=== PATIENT | female | born 1950 | race Hispanic/Latino ===

== ENCOUNTER 2017-03-29 15:38 | Emergency (ER) | payer MEDICARE, OTHER ==
[~2017-03-29] VITALS: Ht 157.5 cm; Wt 93.9 kg
[2017-03-29] MEDS ORDERED: BACITRACIN ZINC 0.9GM TP ONE (16:00)
== END 2017-03-29 16:15 | disposition home or self-care (01) ==
LOC: ER 15:38
DX: S61.217A Laceration without foreign body of left little finger without damage to nail, initial encounter (principal); W26.0XXA Contact with knife, initial encounter; Y93.G3 Activity, cooking and baking; Y92.000 Kitchen of unspecified non-institutional (private) residence as the place of occurrence of the external cause
CPT/HCPCS: 99282

== ENCOUNTER 2018-09-09 20:03 | Emergency (ER) | payer MEDICARE ==
[~2018-09-09] VITALS: Ht 157.5 cm; Wt 95.7 kg
[~2018-09-09 20:03] MED LIST: FEXOFENADINE H180 MG PO; LOSARTAN-HCTZ1 EAC2 PO
--- OUTSIDE RECORDS SUMMARY | 2018-09-09 20:05 | XMS REPORT | Clinical Summary ---
Author Author Joshua [facility] Organization [facility] Address Unknown Phone Unavailable Care Team Providers Care Thermostat Mechanic Name Role Phone Michael Woodard MD PCP Allergies No Known Allergies Medications Not on file Active Problems Not on file Social History Date Tobacco Use Types Packs/Day Years Used Quit: 03/04/1980 Former Smoker 15 Smokeless Tobacco: Never Used Alcohol Use Drinks/Week oz/Week Comments No Sex Assigned at Date Recorded Not on file Industry Job Start Date Occupation Not on file Not on file Not on file Travel End Travel History Travel Start No recent travel history available. Last Filed Vital Signs Not on file Plan of Treatment Health Maintenance Due Date Last Done Comments BREAST CANCER SCREENING 1999 COLONOSCOPY SCREENING 1999 SHINGLES VACCINES (#1) 1999 65+ PNEUMOCOCCAL VACCINE 2014 (1 of 2 - PCV13) INFLUENZA VACCINE 10/27/2018 Results Not on fileafter 09/08/2017 Insurance Type Payer Benefit Subscriber ID Effective Phone Address Plan / Dates Group HMO U[employer] MEDICARE [employer] xxxxxxxxx 2017- MEDICARE Present DIRECT MCR Advance Directives Patient has advance care planning documents on file. For more information, michael medina contact: Joshua Cole [id number] [place] [address]
[2018-09-09 20:45] LABS: BASOPHILS # (AUTO) 0.1 (0.0-0.1); BASOPHILS % 0.6 % (0.0-1.0); EOSINOPHILS # (AUTO) 0.3 (0.0-0.4); HEMATOCRIT 39.2 % (34.2-44.1); HEMOGLOBIN 12.6 g/dL (12.0-16.0); LYMPHOCYTES # (AUTO) 3.2 (1.0-3.2); LYMPHOCYTES % 38.7 % (18.0-39.1); MEAN CORPUSCULAR HEMOGLOBIN 29.2 pg (28-32); MEAN CORPUSCULAR HGB CONC 32.1 g/dL (31-35); MONOCYTES # (AUTO) 0.8 (0.2-0.8); MONOCYTES % 9.9 % (4.4-11.3); NEUTROPHILS # (AUTO) 3.8 (2.1-6.9); NEUTROPHILS % 46.4 % (38.7-80.0); PLATELET COUNT 165 x10e3/uL (140-360); RED BLOOD COUNT 4.31 x10e6/uL (3.6-5.1); RED CELL DISTRIBUTION WIDTH 14.1 % (11.7-14.4)
[2018-09-09 20:46] LABS: BILIRUBIN,URINE NEGATIVE (NEGATIVE); COLOR,URINE YELLOW (YELLOW); KETONES,URINE NEGATIVE (NEGATIVE); LEUKOCYTE ESTERASE ,URINE NEGATIVE (NEGATIVE); NITRITE,URINE NEGATIVE (NEGATIVE); PROTEIN,URINE DIPSTICK NEGATIVE (NEGATIVE); URINE UROBILINOGEN 0.2 mg/dL (0.2 - 1)
[2018-09-09 20:47] LABS: CLARITY,URINE SL CLOUDY (CLEAR)
[2018-09-09 20:53] LABS: INR 0.86; PROTHROMBIN TIME 12.2 seconds (11.9-14.5)
[2018-09-09 20:54] LABS: PARTIAL THROMBOPLASTIN TIME 34.5 seconds (23.8-35.5)
[2018-09-09 20:57] LABS: BACTERIA,URINE MODERATE /HPF; EPITHELIAL CELLS,URINE MODERATE /LPF; TRANSITIONAL EPI CELLS,URINE FEW
[2018-09-09 21:03] LABS: ALANINE AMINOTRANSFERASE 19 IU/L (0-55); ALBUMIN 3.5 g/dL (3.5-5.0); ALBUMIN/GLOBULIN RATIO 0.7 (0.8-2.0); ALKALINE PHOSPHATASE 211 IU/L (40-150); BLOOD UREA NITROGEN 25 mg/dL (7-26); BUN/CREATININE RATIO 34 (6-25); CARBON DIOXIDE 24 mmol/L (22-29); CHLORIDE 104 mmol/L (98-107); CREATINE KINASE 48 IU/L (29-168); CREATININE, SERUM 0.74 mg/dL (0.57-1.11); EST GLOMERULAR FILTRATION RATE > 60 ML/MIN (60-); GLUCOSE 93 mg/dL (74-118); SODIUM 136 mmol/L (136-145)
--- NOTE | 2018-09-09 22:34 | Diagnostic Imaging Report ---
EXAMINATION: CHEST SINGLE (PORTABLE) INDICATION: Shortness of breath. COMPARISON: 12/01/2017 FINDINGS: TUBES and LINES: None. LUNGS: Lungs are well inflated. Lungs are clear. There is mild prominence of the central pulmonary vasculature, consistent with pulmonary venous congestion. PLEURA: No pleural effusion or pneumothorax. HEART AND MEDIASTINUM: Cardiac size is mildly enlarged. BONES AND SOFT TISSUES: No acute osseous lesion. Spondylosis of the thoracic spine. UPPER ABDOMEN: No free air under the diaphragm. IMPRESSION: Mild pulmonary venous congestion. Signed by: Dr. Chantal Garces M.D. on 09/09/2018 10:31 PM
== END 2018-09-09 22:52 | disposition home or self-care (01) ==
LOC: ER 20:03
DX: R06.09 Other forms of dyspnea (principal)
CPT/HCPCS: 36415; 71045; 80053; 81001; 82550; 82553; 83880; 84484; 85025; 85610; 85730; 93005; 99283

== ENCOUNTER 2019-07-04 17:41 | Inpatient (IN) | payer MEDICARE ==
[~2019-07-04] VITALS: Ht 157.5 cm; Wt 95.7 kg
[2019-07-04] MEDS ORDERED: ASPIRIN 81 MG CHEW TAB PO ONE ×2 (18:00→20:45)
[2019-07-04 18:11] LABS: BASOPHILS % 0.4 % (0.0-1.0); EOSINOPHILS # (AUTO) 0.2 (0.0-0.4); EOSINOPHILS % 2.4 % (0.0-6.0); HEMATOCRIT 39.3 % (34.2-44.1); HEMOGLOBIN 12.4 g/dL (12.0-16.0); LYMPHOCYTES # (AUTO) 3.3 (1.0-3.2); LYMPHOCYTES % 34.6 % (18.0-39.1); MEAN CORPUSCULAR HEMOGLOBIN 29.1 pg (28-32); MEAN CORPUSCULAR HGB CONC 31.6 g/dL (31-35); MEAN CORPUSCULAR VOLUME 92.3 fL (81-99); MONOCYTES # (AUTO) 0.9 (0.2-0.8); MONOCYTES % 8.9 % (4.4-11.3); NEUTROPHILS # (AUTO) 5.1 (2.1-6.9); NEUTROPHILS % 53.5 % (38.7-80.0); PLATELET COUNT 162 x10e3/uL (140-360); RED BLOOD COUNT 4.26 x10e6/uL (3.6-5.1); RED CELL DISTRIBUTION WIDTH 14.5 % (11.7-14.4)
[2019-07-04] MEDS ORDERED: MORPHINE SULFATE 2 MG/ML SYR 1ML IV STA (18:14)
[2019-07-04] MEDS ORDERED: PANTOPRAZOLE 40 MG 10ML VIAL IV STA (18:14)
[2019-07-04] MEDS ORDERED: ONDANSETRON HCL INJ 2MG/ML 2ML 2 MG/ML VIAL IV STA (18:14)
--- NOTE | 2019-07-04 18:19 | NUR ---
URINE SAMPLE NEEDED FROM PATIENT. PATIENT STATES SHE CANNOT GO RIGHT NOW. PT STATES SHE WOULD LIKE TO HAVE SOME TIME, PATIENT DOES NOT WANT TO BE CATHETERIZED AT THIS TIME. PROVIDER AWARE. WILL ATTEMPT TO TAKE PATIENT TO RESTROOM AGAIN.
[2019-07-04 18:21] LABS: INR 0.96; PROTHROMBIN TIME 13.4 seconds (11.9-14.5)
[2019-07-04 18:22] LABS: PARTIAL THROMBOPLASTIN TIME 32.2 seconds (23.8-35.5)
[2019-07-04 18:31] LABS: ALANINE AMINOTRANSFERASE 21 IU/L (0-55); ALBUMIN 3.5 g/dL (3.5-5.0); ALBUMIN/GLOBULIN RATIO 0.8 (0.8-2.0); ALKALINE PHOSPHATASE 267 IU/L (40-150); ANION GAP 13.7 mmol/L (8-16); BLOOD UREA NITROGEN 15 mg/dL (7-26); BUN/CREATININE RATIO 22 (6-25); CALCIUM 9.6 mg/dL (8.4-10.2); CARBON DIOXIDE 23 mmol/L (22-29); CHLORIDE 107 mmol/L (98-107); CREATINE KINASE 47 IU/L (29-168); CREATININE, SERUM 0.67 mg/dL (0.57-1.11); EST GLOMERULAR FILTRATION RATE > 60 ML/MIN (60-); GLUCOSE 114 mg/dL (74-118); LIPASE 26 U/L (8-78); POTASSIUM 3.7 mmol/L (3.5-5.1); SODIUM 140 mmol/L (136-145)
--- NOTE | 2019-07-04 18:47 | Diagnostic Imaging Report ---
EXAMINATION: CHEST SINGLE (PORTABLE) INDICATION: ^ERMD ORDER ^[id number] ^[id number] ^Y COMPARISON: Chest radiograph 09/09/2018 FINDINGS: AP view TUBES and LINES: None. LUNGS: Lungs are well inflated. Mild bilateral interstitial edema. No lobar consolidations. PLEURA: No pleural effusion or pneumothorax. HEART AND MEDIASTINUM: Stable mild enlargement of the cardiac silhouette. BONES AND SOFT TISSUES: No acute osseous lesion. Soft tissues are unremarkable. UPPER ABDOMEN: No free air under the diaphragm. IMPRESSION: Bilateral interstitial edema, similar in appearance when compared to 09/09/2018. Signed by: Dr. Diane Palm M.D. on 07/04/2019 6:43 PM
[2019-07-04] MEDS ORDERED: SODIUM CHLORIDE 0.9% 50ML 50 ML ONE (19:41)
[2019-07-04] MEDS ORDERED: IOPAMIDOL 370 MG/ML 200 ML INFUS..BTL INJ ONE (19:41)
[2019-07-04 19:46] LABS: CLARITY,URINE SL CLOUDY (CLEAR); COLOR,URINE YELLOW (YELLOW); LEUKOCYTE ESTERASE ,URINE NEGATIVE (NEGATIVE); NITRITE,URINE NEGATIVE (NEGATIVE); PROTEIN,URINE DIPSTICK NEGATIVE (NEGATIVE)
[2019-07-04 19:47] LABS: BILIRUBIN,URINE NEGATIVE (NEGATIVE); KETONES,URINE NEGATIVE (NEGATIVE); URINE UROBILINOGEN 1 mg/dL (0.2 - 1)
[2019-07-04 19:58] LABS: BACTERIA,URINE MANY /HPF; WBC,URINE (MAN) 0-5 /HPF (0-5)
--- NOTE | 2019-07-04 20:24 | Diagnostic Imaging Report ---
EXAM: CT Abdomen and Pelvis WITH contrast INDICATION: ^abd pain ^[id number] ^1947 COMPARISON: Chest radiograph 07/04/2019 TECHNIQUE: Abdomen and pelvis were scanned utilizing a multidetector helical scanner from the lung base to the pubic symphysis after administration of IV contrast. Coronal and sagittal reformations were obtained. Routine protocol was performed. Scan was performed when during portal venous phase. IV CONTRAST: 100 mL of Isovue-370 ORAL CONTRAST: Water RADIATION DOSE: Total DLP: 653.8 mGy*cm Estimated effective dose: (DLP x 0.015 x size factor) mSv COMPLICATIONS: None FINDINGS: LINES and TUBES: None. LOWER THORAX: Mild scarring and cystic changes in the posterior right lower lobe. HEPATOBILIARY: No focal hepatic lesions. No biliary ductal dilation. GALLBLADDER: 1.7 cm gallstone. No wall thickening. SPLEEN: No splenomegaly. PANCREAS: No focal masses or ductal dilatation. ADRENALS: No adrenal nodules KIDNEYS/URETERS: Kidneys enhance symmetrically. No hydronephrosis. No cystic or solid mass lesions. 2 mm nonobstructing calcified stone in the distal left ureter at the ureteral vesical junction on series 2, image 65. GI TRACT: No abnormal distention, wall thickening, or evidence of bowel obstruction. Appendix is not visualized. PELVIC ORGANS/BLADDER: Hysterectomy. LYMPH NODES: No lymphadenopathy. VESSELS: Atherosclerotic calcifications of the abdominal aorta without aneurysm. PERITONEUM / RETROPERITONEUM: No free air or fluid. BONES: Unremarkable. SOFT TISSUES: Unremarkable. IMPRESSION: Nonobstructing 2 mm left distal ureteral stone. Cholelithiasis. Signed by: Dr. Diane Palm M.D. on 07/04/2019 8:21 PM
[2019-07-04] MEDS ORDERED: ONDANSETRON HCL INJ 2MG/ML 2ML 2 MG/ML VIAL IV PRN (20:45)
--- NOTE | 2019-07-04 21:35 | NUR ---
Patient became dyspneic when ambulating to restroom. Patient returned to [facility] and placed on 3L NC and repeat EKG done. Patient began to catch her breath after a couple of minutes. Oxygen saturations remained normal at 97-100% throughout episode. Patient fingertips appeared cyanotic after ambulating and returned to normal after oxygen placed. ER MD notified. Patient deemed stable enough to go to the floor after being monitored closely. No distress noted. Patient states she feels much better after a couple of minutes. Receiving nurse on med surg called and notified of exertional dypnea and patient placed on 3L NC.
[2019-07-04 22:30] VITALS: BP 154/66
--- NOTE | 2019-07-04 22:30 | NUR ---
Patient received via stretcher from ER. AAO x 3. Patient had no complaints of pain. Respirations even and non-labored on 3L NC. Telemetry in place. Admission history obtained from patient and medical chart. Initial physical assessment performed. Patient oriented to room, call light and plan of care. Safety measures implemented. Patient instructed to call for assistance when needed. Call light within reach.
[2019-07-05] VITALS (8 sets, daily range): BP systolic 84–120; BP diastolic 50–57
--- NOTE | 2019-07-05 00:22 | NUR ---
Patient's temperature elevated---101.2F. Dr. Jo notified. New order received for Tylenol 650 mg Q6H PRN. Also, requesting Dr. Corbin as Infectious Disease 'Consult'.
[2019-07-05] MEDS ORDERED: ACETAMINOPHEN 325 MG TAB PO PRN ×2 (00:30→06:30)
[2019-07-05] MEDS: MORPHINE SULFATE INJ 4 MG/ML INJ 1ML IV PRN ×3 (02:49→15:11)
--- NOTE | 2019-07-05 05:08 | NUR ---
Patient's temperature elevated----102.[address] Jo paged. Awaiting orders.
[2019-07-05 06:04] LABS: BASOPHILS # (AUTO) 0.1 (0.0-0.1); BASOPHILS % 0.2 % (0.0-1.0); EOSINOPHILS % 0.2 % (0.0-6.0); HEMATOCRIT 38.1 % (34.2-44.1); HEMOGLOBIN 11.9 g/dL (12.0-16.0); LYMPHOCYTES # (AUTO) 1.4 (1.0-3.2); LYMPHOCYTES % 6.4 % (18.0-39.1); MEAN CORPUSCULAR HEMOGLOBIN 28.6 pg (28-32); MEAN CORPUSCULAR HGB CONC 31.2 g/dL (31-35); MEAN CORPUSCULAR VOLUME 91.6 fL (81-99); MONOCYTES # (AUTO) 1.4 (0.2-0.8); MONOCYTES % 6.4 % (4.4-11.3); NEUTROPHILS # (AUTO) 18.6 (2.1-6.9); NEUTROPHILS % 86.1 % (38.7-80.0); PLATELET COUNT 151 x10e3/uL (140-360); RED BLOOD COUNT 4.16 x10e6/uL (3.6-5.1); RED CELL DISTRIBUTION WIDTH 14.5 % (11.7-14.4)
--- NOTE | 2019-07-05 06:05 | NUR ---
Dr. Corbin paged regarding "Routine Consult": Reason: Fever. Spoke to Rima. Awaiting call back.
--- NOTE | 2019-07-05 06:06 | NUR ---
Dr. Jessica Pelaez paged regarding "Routine Consult". Left a message on voice-mail. Awaiting call back.
[2019-07-05 06:19] LABS: CREATINE KINASE MB 0.7 ng/mL (0-5.0)
--- NOTE | 2019-07-05 06:21 | NUR ---
Dr. Jo called back with new orders: Urine culture; Blood culture x 2;Tylenol 650 mg Q4H PRN; Cefepime 1 g IV Q8H; Surgical Consult --Dr. Mane for Abdominal pain/Right hip pain .
[2019-07-05 06:35] LABS: ALBUMIN 3.3 g/dL (3.5-5.0); ALBUMIN/GLOBULIN RATIO 0.8 (0.8-2.0); ANION GAP 12.4 mmol/L (8-16); CALCIUM 9.2 mg/dL (8.4-10.2); CREATININE, SERUM 0.95 mg/dL (0.57-1.11); POTASSIUM 3.4 mmol/L (3.5-5.1)
[2019-07-05 08:57] LABS: BAND NEUTROPHILS % (MANUAL) 4 %; LYMPHOCYTES % (MANUAL) 5 % (19-48); MONOCYTES % (MANUAL) 5 % (3.4-9.0); NEUTROPHILS % (MANUAL) 86 % (40-74); PLATELET ESTIMATE ADEQUATE; PLATELET MORPHOLOGY COMMENT NORMAL; RBC MORPHOLOGY COMMENT NORMAL
[2019-07-05] MEDS: CEFEPIME 1GM/NS 0.9% 50 ML 50 ML IV SCH ×2 (09:02→16:17)
[2019-07-05] MEDS ORDERED: SODIUM CHLORIDE 0.9% 250ML 250 ML ONE (09:13)
--- NOTE | 2019-07-05 09:48 | Diagnostic Imaging Report ---
EXAM: Right upper quadrant abdominal ultrasound INDICATION: Abdominal pain COMPARISON: None. TECHNIQUE: Transverse and longitudinal images of the right upper quadrant abdomen were obtained FINDINGS: Liver: Size: 18.1 cm in the right midclavicular line, normal Appearance: Normal echogenicity, smooth contour Mass: No focal masses Gallbladder: Sludge and stones in the gallbladder. No gallbladder wall thickening, pericholecystic fluid, or gallbladder distention. The gallbladder wall measures 4 mm. Negative sonographic Abdi's sign. Bile Ducts: Intrahepatic Ducts: No dilatation Extrahepatic Ducts: Common bile duct measures 5 mm Pancreas: Visualized portions of the pancreatic head, neck and proximal body are normal. Kidney: The right kidney measures 9.8 cm without evidence of hydronephrosis or stone. Vessels: Aorta: Visualized portions are normal Inferior Vena Cava: Visualized portions are normal Main Portal Vein: 0.8 cm, normal size with hepatopetal flow. Free Fluid: No ascites or pleural effusion IMPRESSION: Cholelithiasis and sludge in the gallbladder. No specific sonographic evidence of cholecystitis. Signed by: Jo Campos MD on 07/05/2019 9:45 AM
[2019-07-05] MEDS ORDERED: GADOBENATE DIMEGLUMINE 1 ML IV ONE (10:22)
[2019-07-05] MEDS ORDERED: SODIUM CHLORIDE 0.9% 100 ML ONE (10:22)
--- NOTE | 2019-07-05 10:28 | NUR ---
pt transfered to radiology via wheel chair by tech, no sign of acute distress noted
[2019-07-05] MEDS ORDERED: METRONIDAZOLE 750MG/NS 150ML 150 ML IV ONE (10:45)
--- NOTE | 2019-07-05 11:05 | NUR ---
[address] FELICIANO ON THE PHONE, INFORMED HIM DR WEBBER DISCHARGED PT, OK TO DISCHARGE FROM HIS STAND PT Addendum: 07/05/19 at 1113 by Kelsie Garcia RN WRONG PT
--- NOTE | 2019-07-05 12:30 | NUR ---
SPOKE TO DR DE LEON ON THE PHONE, [facility] RESULTS, AWAITING LABS, 1245 FIELD STAFF CALLED, SHE WILL DRAW BLOOD SHORTLY
--- NOTE | 2019-07-05 12:42 | Diagnostic Imaging Report ---
TECHNIQUE: MRI of the abdomen and MRCP WITHOUT and WITH intravenous contrast. 3-D volume reconstructions were obtained to evaluate the biliary ductal system. INDICATION: ^GALLSTONES. COMPARISON: None. FINDINGS: Rotatory motion artifact on the post contrast imaging LOWER THORAX: Unremarkable. LIVER: No hepatic signal abnormality. No focal hepatic lesions. BILIARY: A gallstone measures 1.8 cm and layers in the gallbladder neck. There is no gallbladder distention or wall thickening.. No biliary ductal dilatation or filling defect. The common bile duct measures 0.6 cm in diameter. SPLEEN: No splenomegaly. PANCREAS: No focal masses or ductal dilatation. ADRENALS: No adrenal nodules. KIDNEYS/URETERS: No hydronephrosis or solid mass lesions. PERITONEUM/RETROPERITONEUM: No free fluid. LYMPH NODES: No lymphadenopathy. VESSELS: Conventional hepatic arterial anatomy. GI TRACT: No distention or wall thickening. Diverticulum of the second portion of the duodenum. BONES AND SOFT TISSUES: Unremarkable. IMPRESSION: 1. The common bile duct is normal in diameter without choledocholithiasis. 2. Cholelithiasis without specific signs of acute cholecystitis. Signed by: Brett Elias JR, MD on 07/05/2019 12:39 PM
[2019-07-05 13:47] LABS: BASOPHILS # (AUTO) 0.1 (0.0-0.1); BASOPHILS % 0.3 % (0.0-1.0); HEMATOCRIT 36.7 % (34.2-44.1); HEMOGLOBIN 11.4 g/dL (12.0-16.0); LYMPHOCYTES # (AUTO) 1.8 (1.0-3.2); LYMPHOCYTES % 8.2 % (18.0-39.1); MEAN CORPUSCULAR HGB CONC 31.1 g/dL (31-35); MEAN CORPUSCULAR VOLUME 93.4 fL (81-99); MONOCYTES % 4.7 % (4.4-11.3); NEUTROPHILS # (AUTO) 18.6 (2.1-6.9); NEUTROPHILS % 86.3 % (38.7-80.0); PLATELET COUNT 142 x10e3/uL (140-360); RED BLOOD COUNT 3.93 x10e6/uL (3.6-5.1); RED CELL DISTRIBUTION WIDTH 14.7 % (11.7-14.4)
[2019-07-05 14:08] LABS: ALBUMIN 3.1 g/dL (3.5-5.0); ALBUMIN/GLOBULIN RATIO 0.7 (0.8-2.0); ANION GAP 12.6 mmol/L (8-16); CALCIUM 8.7 mg/dL (8.4-10.2); CREATININE, SERUM 1.39 mg/dL (0.57-1.11); POTASSIUM 3.6 mmol/L (3.5-5.1)
--- NOTE | 2019-07-05 14:20 | NUR ---
SPOKE TO DR DE LEON REPORTED LABS, ASKED ME TO SPEAK TO DR GENAO AGAIN [address] GENAO, HE IS ON HIS WAY 1430 DR DE LEON AT BD 1455 DR GENAO AT BS, WILL SCHEDULE PT FOR SURGERY TOMORROW
[2019-07-05] MEDS ORDERED: SODIUM CHLORIDE 0.9% 500ML 500 ML ONE ×2 (14:45→22:40)
[2019-07-05] MEDS ORDERED: SODIUM CHLORIDE 0.9% 500ML 500 ML IV ONE ×2 (14:45→18:45)
--- NOTE | 2019-07-05 15:47 | Consultation ---
DATE OF CONSULTATION: 07/05/2019 HISTORY OF PRESENT ILLNESS: The patient is a 69-year-old female, who presents with complaints of right upper quadrant abdominal pain. The patient says the pain started two days ago. She has not had similar pains in the past, but the pain has gotten worse. She has associated nausea and also fever. Evaluation revealed gallstones with borderline thickened gallbladder wall. She says the pain does not radiate. PAST MEDICAL HISTORY: Significant for hypertension. She had a hysterectomy three years ago for uterine cancer. MEDICATIONS AT HOME: 1. Losartan. 2. Hydrochlorothiazide. ALLERGIES: SHE HAS NO KNOWN ALLERGIES. FAMILY HISTORY: Noncontributory. SOCIAL HISTORY: The patient does not smoke cigarettes or drink alcohol. REVIEW OF SYSTEMS: As stated above, otherwise was negative. PHYSICAL EXAMINATION: GENERAL: The patient is awake and alert. VITAL SIGNS: Normal. She is not tachycardic, although blood pressure is 90/50. HEENT: Sclerae is not icteric. NECK: Supple. No masses. LUNGS: Equal breath sounds are clear bilaterally. CARDIAC: Regular rate and rhythm with no murmur. ABDOMEN: Tender in the epigastric right upper quadrant, questionable signs of peritonitis. There is no mass. No organomegaly. EXTREMITIES: Have no edema. NEUROLOGIC: Grossly intact. LABORATORY TEST: [place] [address], hemoglobin 11, hematocrit 36, platelet count is normal. Chemistries elevated bilirubin 3.1, alkaline phosphatase of 338. Amylase is normal. Lipase was normal. Electrolytes, BUN, creatinine are normal. ASSESSMENT: A 69-year-old female with findings suggestive of acute cholecystitis, cholelithiasis. She will likely benefit from cholecystectomy, which I plan to schedule for tomorrow morning. Procedure was explained to the patient including risks, benefits, and alternatives. She understands. She has had the opportunity to ask questions. She does have an elevated bilirubin. MRCP was negative for common bile duct stones. This possibly could be a small stone there or abnormal liver function tests could be related to the acute cholecystitis. Thank you for asking me to see Ms. Garcia. MD GHADA Jordan/HENRI /[id number]
[2019-07-05] MEDS: METRONIDAZOLE 500MG/NS 100ML 100 ML IV SCH ×2 (17:12→23:03)
--- NOTE | 2019-07-05 18:55 | NUR ---
BEDSIDE REPORT AND CARE TO RACHEL CESPEDES
[2019-07-06] VITALS (14 sets, daily range): BP systolic 91–122; BP diastolic 51–83
[2019-07-06] MEDS: CEFEPIME 1GM/NS 0.9% 50 ML 50 ML IV SCH ×3 (00:15→16:00)
[2019-07-06] MEDS: METRONIDAZOLE 500MG/NS 100ML 100 ML IV SCH ×4 (05:05→23:00)
[2019-07-06 05:46] LABS: BASOPHILS % 0.2 % (0.0-1.0); EOSINOPHILS % 0.2 % (0.0-6.0); HEMATOCRIT 33.7 % (34.2-44.1); HEMOGLOBIN 10.7 g/dL (12.0-16.0); LYMPHOCYTES # (AUTO) 1.7 (1.0-3.2); LYMPHOCYTES % 10.5 % (18.0-39.1); MEAN CORPUSCULAR HEMOGLOBIN 29.3 pg (28-32); MEAN CORPUSCULAR HGB CONC 31.8 g/dL (31-35); MEAN CORPUSCULAR VOLUME 92.3 fL (81-99); MONOCYTES # (AUTO) 1.7 (0.2-0.8); MONOCYTES % 10.5 % (4.4-11.3); NEUTROPHILS # (AUTO) 12.3 (2.1-6.9); NEUTROPHILS % 77.6 % (38.7-80.0); RED BLOOD COUNT 3.65 x10e6/uL (3.6-5.1); RED CELL DISTRIBUTION WIDTH 14.8 % (11.7-14.4)
[2019-07-06 06:13] LABS: ALANINE AMINOTRANSFERASE 91 IU/L (0-55); ALBUMIN 2.8 g/dL (3.5-5.0); ALBUMIN/GLOBULIN RATIO 0.7 (0.8-2.0); ALKALINE PHOSPHATASE 270 IU/L (40-150); ANION GAP 12.6 mmol/L (8-16); BLOOD UREA NITROGEN 21 mg/dL (7-26); BUN/CREATININE RATIO 23 (6-25); CALCIUM 8.6 mg/dL (8.4-10.2); CARBON DIOXIDE 22 mmol/L (22-29); CHLORIDE 104 mmol/L (98-107); CREATININE, SERUM 0.91 mg/dL (0.57-1.11); EST GLOMERULAR FILTRATION RATE > 60 ML/MIN (60-); GLUCOSE 89 mg/dL (74-118); POTASSIUM 3.6 mmol/L (3.5-5.1); SODIUM 135 mmol/L (136-145)
--- NOTE | 2019-07-06 06:22 | NUR ---
Patient off the Unit for procedure.
[2019-07-06] MEDS ORDERED: BUPIVACAINE HCL 0.5% INJ 30 ML VIAL INJ ONE (06:43)
[2019-07-06] MEDS ORDERED: IOPAMIDOL 300MG/ML 50ML INFUS..BTL IV ONE (07:20)
[2019-07-06 07:34] LABS: LYMPHOCYTES % (MANUAL) 9 % (19-48); MONOCYTES % (MANUAL) 8 % (3.4-9.0); NEUTROPHILS % (MANUAL) 83 % (40-74)
[2019-07-06 07:41] LABS: PLATELET MORPHOLOGY COMMENT RARE EDTA CLUMPING; POLYCHROMASIA FEW
[2019-07-06 07:44] LABS: ANISOCYTOSIS SLIGHT; PLATELET COUNT 99 x10e3/uL (140-360); RBC MORPHOLOGY COMMENT NORMAL
[2019-07-06 07:45] LABS: LARGE PLATELETS FEW; PLATELET ESTIMATE SLIGHTLY DECREASED
[2019-07-06] MEDS ORDERED: ONDANSETRON HCL INJ 2MG/ML 2ML 2 MG/ML VIAL IV PRN (08:00)
[2019-07-06] MEDS ORDERED: HYDROCODONE/APAP 5MG-325MG TAB PO PRN (08:00)
[2019-07-06] MEDS ORDERED: ACETAMINOPHEN 325 MG TAB PO PRN (08:00)
[2019-07-06] MEDS ORDERED: FENTANYL CITRATE/PF 100MCG/2 ML INJ ONE ×2 (08:48→17:49)
[2019-07-06] MEDS ORDERED: ONDANSETRON HCL INJ 2MG/ML 2ML 2 MG/ML VIAL ONE ×2 (08:48→17:45)
--- NOTE | 2019-07-06 08:50 | Operative Report ---
DATE OF PROCEDURE: 07/06/2019 SURGEON: Deng Mane MD PREOPERATIVE DIAGNOSIS: Acute cholecystitis, cholelithiasis. POSTOPERATIVE DIAGNOSIS: Acute cholecystitis, cholelithiasis with choledocholithiasis. PROCEDURE: Diagnostic laparoscopy, laparoscopic cholecystectomy, intraoperative cholangiogram. DATA WAREHOUSE DEVELOPER: None. ANESTHESIA: General. INDICATIONS AND FINDINGS: The patient is a 69-year-old female, admitted with epigastric abdominal pain. Workup found with elevated white blood cell count, abnormal liver function tests. Preop MRCP was negative for common bile duct stone. She did have gallstones, however, surgery based on the gallbladder was distended and edematous containing white bile, which was slightly purulent. Intraoperative cholangiogram was done, which revealed filling of the entire biliary tree, but no flow into the duodenum with suggestion of an obstruction in the distal common bile duct. Intraoperative consultation with Gastroenterology, Dr. Abhilash Dallas was done and decision was made to proceed with cholecystectomy with ERCP to be done the following day. TECHNIQUE: After adequate general endotracheal anesthesia, the patient in supine position, the abdomen was prepped and draped in sterile fashion with ChloraPrep solution. Skin in the umbilicus was infiltrated with 0.5% Marcaine. Incision was made in the umbilicus, abdominal wall was elevated and Veress needle was introduced. Pneumoperitoneum was then created. A 10 mm trocar and cannula was then passed through the umbilical wound. Laparoscopic camera was introduced. Initial laparoscopy of the gallbladder to be distended and mildly edematous and tense. A 10 mm trocar and cannula was placed in epigastrium, two 5 mm trocars and cannulas were placed in the right upper quadrant. These were placed under direct vision. Gallbladder was tense and was decompressed with a needle contained white bile, which was slightly purulent. The fundus of the gallbladder was grasped, retracted superiorly, neck of the gallbladder was grasped, retracted laterally. There was a stone in the gallbladder neck, which was pushed back into the fundus. Peritoneum over the neck of the gallbladder was incised. The gallbladder cystic duct junction was dissected free. Cystic artery was also dissected free. The cystic artery divided between hemoclips close to the gallbladder. A clip was then placed on the cystic duct at the junction with the gallbladder. An incision was then made in the cystic duct. A percutaneously introduced cholangiocatheter was passed into the cystic duct and cholangiogram was done. This revealed filling of the entire biliary tree, but no flow into the duodenum, appeared to be an obstruction at the distal common bile duct. Intraoperative consultation was obtained with Dr. Abhilash Dallas. It was decided that he would do ERCP tomorrow to try to remove the stone endoscopically rather than try to do the surgery as there was considerable edema around the whole area. The yves hepatis and the cholangiocatheter were then removed. Cystic duct was divided between hemoclips with three clips being left on the common bile duct side. The gallbladder was dissected free from the liver using scissors and electrocautery. Once it was entirely free, it was placed into an Endopouch and brought through the epigastric cannula. There was at least one stone palpable. Gallbladder bed was inspected for hemostasis. There was one point, which was bleeding, which was controlled with electrocautery. It was irrigated with saline. All fluid aspirated and inspected for hemostasis, which was seen to be adequate. Instruments and cannulas were then removed. Pneumoperitoneum was evacuated. Wounds were then closed. Fascia in the umbilical and epigastric wound closed with 0 Vicryl. Skin to all wounds closed with zora. Sterile dressings applied to each wound. The patient tolerated the procedure well. Estimated blood loss was 20 mL. There were no complications. All counts were correct. The patient was taken to the recovery room in satisfactory condition. MD MARGOT JordanG/MODL /[id number] cc: MD Abhilash Arguelles MD Karan S Bhalla, MD
--- NOTE | 2019-07-06 09:30 | Progress Note ---
DATE: 07/06/2019 SUBJECTIVE: Ms. Garcia is a 69-year-old female with a past medical history of hypertension, came to the emergency room complaining of right upper quadrant pain with nausea and fever. The pain got worse. White count was very elevated. Abdominal CT showed gallstones with a borderline thickened gallbladder. She underwent for cholecystectomy today. She just came back from the surgery. PHYSICAL EXAMINATION: GENERAL: She is still sleepy. VITAL SIGNS: Temperature 98.7 and blood pressure 107/51. HEART: Regular rate. LUNGS: Poor inspiratory effort. ABDOMEN: Distended. LABORATORY DATA: On the blood work; white count is 15.8, hemoglobin 10.7, and hematocrit 33.7. Potassium 3.6, creatinine is 0.91, and glucose 89. Liver enzymes and alkaline phosphatase are slowly going down. Urine culture positive for gram-negative rods. MRCP showed the common bile duct is normal without choledocholithiasis. Cholelithiasis without a specific sign of acute cholecystitis. ASSESSMENT: 1. Sepsis secondary to cholecystitis with fever, leukocytosis, and hypotension. 2. Cholelithiasis, status post cholecystectomy. 3. History of hypertension. PLAN: At the present time, the patient just had a cholecystectomy. Continue to monitor liver enzymes. Continue to monitor white cells. Continue IV antibiotics, pain medication. The overall prognosis of the patient is guarded. We will continue to monitor her. MD JOSE G Arguelles/HENRI /[id number]
[2019-07-06] MEDS: SODIUM CHLORIDE 0.9% 1000ML 1,000 ML IV SCH ×2 (09:50→18:24)
[2019-07-06] MEDS ORDERED: DESFLURANE 240 ML BTL INH ONE (17:45)
[2019-07-06] MEDS ORDERED: PROPOFOL IV EMULSION 10 MG/ML 20 ML VIAL ONE (17:45)
[2019-07-06] MEDS ORDERED: ROCURONIUM BROMIDE 10 MG/ML 5ML VIAL IV ONE (17:45)
[2019-07-06] MEDS ORDERED: NEOSTIGMINE 1 MG/ML 10ML VIAL ONE (17:45)
[2019-07-06] MEDS ORDERED: GLYCOPYRROLATE INJ 0.2 MG/ML VIAL ONE (17:45)
[2019-07-06] MEDS ORDERED: DEXAMETHASONE SOD PHOS INJ 4 MG/ML VIAL ONE (17:45)
[2019-07-06] MEDS ORDERED: ACETAMINOPHEN 1000 MG/100 ML IV ONE (17:45)
[2019-07-06] MEDS ORDERED: KETOROLAC TROMETHAMINE 30 MG/ML VIAL ONE (17:45)
[2019-07-06] MEDS ORDERED: LIDOCAINE HCL 2% LOCAL INJ 5 ML SDV VIAL INJ ONE (17:45)
[2019-07-06] MEDS ORDERED: MIDAZOLAM HCL 2 MG/2 ML VIAL ONE (17:49)
[2019-07-06] MEDS: MORPHINE SULFATE INJ 4 MG/ML INJ 1ML IV PRN (18:34)
--- NOTE | 2019-07-06 19:28 | NUR ---
Patient received lying in bed. AAO x 3, Denies pain or discomfort at this time. Safety measures in place, Call light within reach.
[2019-07-07] VITALS (7 sets, daily range): BP systolic 116–159; BP diastolic 60–79
[2019-07-07] MEDS: CEFEPIME 1GM/NS 0.9% 50 ML 50 ML IV SCH ×3 (01:07→16:49)
[2019-07-07] MEDS: SODIUM CHLORIDE 0.9% 1000ML 1,000 ML IV SCH ×2 (04:15→16:49)
[2019-07-07] MEDS: METRONIDAZOLE 500MG/NS 100ML 100 ML IV SCH ×4 (05:00→23:10)
[2019-07-07 05:22] LABS: BASOPHILS % 0.2 % (0.0-1.0); EOSINOPHILS % 0.3 % (0.0-6.0); HEMATOCRIT 35.1 % (34.2-44.1); HEMOGLOBIN 10.8 g/dL (12.0-16.0); LYMPHOCYTES # (AUTO) 1.4 (1.0-3.2); LYMPHOCYTES % 12.3 % (18.0-39.1); MEAN CORPUSCULAR HGB CONC 30.8 g/dL (31-35); MEAN CORPUSCULAR VOLUME 94.1 fL (81-99); MONOCYTES % 8.8 % (4.4-11.3); NEUTROPHILS # (AUTO) 8.6 (2.1-6.9); NEUTROPHILS % 77.2 % (38.7-80.0); PLATELET COUNT 116 x10e3/uL (140-360); RED BLOOD COUNT 3.73 x10e6/uL (3.6-5.1); RED CELL DISTRIBUTION WIDTH 14.7 % (11.7-14.4)
[2019-07-07 05:45] LABS: ALANINE AMINOTRANSFERASE 78 IU/L (0-55); ALBUMIN 2.8 g/dL (3.5-5.0); ALBUMIN/GLOBULIN RATIO 0.6 (0.8-2.0); ALKALINE PHOSPHATASE 255 IU/L (40-150); ANION GAP 11.3 mmol/L (8-16); BLOOD UREA NITROGEN 21 mg/dL (7-26); BUN/CREATININE RATIO 24 (6-25); CALCIUM 9.2 mg/dL (8.4-10.2); CARBON DIOXIDE 23 mmol/L (22-29); CHLORIDE 104 mmol/L (98-107); CREATININE, SERUM 0.88 mg/dL (0.57-1.11); EST GLOMERULAR FILTRATION RATE > 60 ML/MIN (60-); GLUCOSE 93 mg/dL (74-118); POTASSIUM 4.3 mmol/L (3.5-5.1); SODIUM 134 mmol/L (136-145)
--- NOTE | 2019-07-07 07:00 | NUR ---
Patient resting comfortably. Bed-side report given to oncoming nurse.
--- NOTE | 2019-07-07 08:30 | NUR ---
HR 40s. Patient asleep. Arousable to verbal stimuli. Offered assistance to go to the bathroom to have some movement. HR increased to 70s.
[2019-07-07] MEDS: MORPHINE SULFATE INJ 4 MG/ML INJ 1ML IV PRN (08:58)
--- NOTE | 2019-07-07 09:03 | NUR ---
aware of HR. See orders
--- NOTE | 2019-07-07 09:44 | Progress Note ---
DATE: 07/07/2019 SUBJECTIVE: Ms. Garcia is a 69-year-old female with history of hypertension, came to the emergency room complaining of epigastric pain, nausea, and fever. She was found to have cholecystitis. She underwent a cholecystectomy today and she is going to go for ERCP. PHYSICAL EXAMINATION: GENERAL: Today, she is awake and alert. VITAL SIGNS: Temperature is 96.6, blood pressure 130/60. HEART: Regular rate. LUNGS: Clear to auscultation. ABDOMEN: Soft, but a little tender due to the surgery. LABORATORY DATA: On the blood work, white count is 11.19, hemoglobin 10.8, and hematocrit is 35, potassium 4.3, creatinine is 0.88, bilirubin is 3.7, alkaline phosphatase went down to 255. The liver enzymes slowly going down. Urine culture showed E. coli. ASSESSMENT: 1. Sepsis secondary to cholecystitis. 2. Cholecystitis and cholelithiasis, status post cholecystectomy. 3. for endoscopic retrograde cholangiopancreatography today. 4. Urinary tract infection with Escherichia coli. 5. Hypertension. PLAN: At present time is to continue to monitor electrolytes and liver enzymes. Continue IV antibiotics. The patient is going to go for ERCP today. All these were discussed with the patient. I spent more than 20 minutes examining patient, reviewing overnight events, lab results, and discussing plan of care with her. MD JOSE G Arguleles/HENRI /[id number]
--- NOTE | 2019-07-07 10:25 | NUR ---
Pt. expressed no spiritual or emotional concerns at this time. Transmitter Operator provided hospitality and information on how to reach fuel quality tech, if needed. No need to follow at this time. RAJESH FISHER Transmitter Operator Spiritual Care Department O: [phone]
--- NOTE | 2019-07-07 10:50 | NUR ---
Taken for procedure. No s/s of acute distress noted
[2019-07-07] MEDS ORDERED: IOPAMIDOL 300MG/ML 50ML INFUS..BTL IV ONE (11:30)
[2019-07-07] MEDS ORDERED: INDOMETHACIN 50 MG SUPP.RECT RC ONE (11:43)
[2019-07-07] MEDS ORDERED: MORPHINE SULFATE 2 MG/ML SYR 1ML IV PRN (12:45)
--- NOTE | 2019-07-07 12:46 | Diagnostic Imaging Report ---
EXAM: Intraoperative fluoroscopy DATE: 07/07/2019 12:00 AM COMPARISON: None FINDINGS: Please note fluoroscopy would was not performed by the radiologist. An intraoperative report for was not requested. Please refer to separate operative/ERCP report for further procedural details. Provided images demonstrate noted overlying the right upper quadrant with cannulation of the common bile duct. A contrast injection Straits opacification of the biliary tree. 2 mobile filling defects are identified within the distal common bile duct which are favored to represent small amount of air and less likely stones. There is passage of contrast material into the small bowel. No extraluminal contrast material is identified. Cholecystectomy clips noted within the right upper quadrant. IMPRESSION: Intraoperative examination as above. Signed by: Dr. Eleuterio Ma MD on 07/07/2019 12:43 PM
[2019-07-07] MEDS ORDERED: KETOROLAC TROMETHAMINE 30 MG/ML VIAL ONE (16:14)
[2019-07-07] MEDS ORDERED: ONDANSETRON HCL INJ 2MG/ML 2ML 2 MG/ML VIAL ONE (16:14)
[2019-07-07] MEDS ORDERED: DEXAMETHASONE SOD PHOS INJ 4 MG/ML VIAL ONE (16:14)
[2019-07-07] MEDS ORDERED: ROCURONIUM BROMIDE 10 MG/ML 5ML VIAL IV ONE (16:14)
[2019-07-07] MEDS ORDERED: SEVOFLURANE INHAL SOLN 250 ML PEN BTL ONE (16:14)
[2019-07-07] MEDS ORDERED: SUCCINYLCHOLINE CHLORIDE 20 MG/ML 10ML VIAL ONE (16:14)
[2019-07-07] MEDS ORDERED: LIDOCAINE HCL 2% LOCAL INJ 5 ML SDV VIAL INJ ONE (16:14)
[2019-07-07] MEDS ORDERED: PROPOFOL IV EMULSION 10 MG/ML 20 ML VIAL ONE (16:14)
[2019-07-07] MEDS ORDERED: GLUCAGON FOR INJ 1 MG VIAL ONE (16:14)
--- NOTE | 2019-07-07 17:20 | Operative Report ---
DATE OF PROCEDURE: 07/07/2019 SURGEON: Abhilash Dallas MD PROCEDURE: ERCP with sphincterotomy, balloon sweep and stone extraction. INDICATIONS FOR PROCEDURE: Choledocholithiasis on intraoperative cholangiogram. MEDICATIONS: The patient was done under general endotracheal anesthesia, please see anesthesiologist's note. PROCEDURE IN DETAIL: With the patient in the prone position, after induction of general endotracheal anesthesia, the flexible fiberoptic Olympus side-viewing scope was inserted into the oropharynx and advanced all the way to the second portion of the duodenum. The ampulla was identified and appeared to be within normal limits. It was cannulated with ease and a cholangiogram was carried out revealing a filling defect in the common bile duct. Endoscopic retrograde sphincterotomy was then carried out followed with balloon sweeps x3 with removal of a small stone. The scope was subsequently withdrawn. The patient tolerated the procedure well. IMPRESSION: 1. Ampulla within normal limits. 2. Filling defect on cholangiogram. 3. ERS carried out in the usual fashion with subsequent balloon sweeps x3 with removal of stone. The patient tolerated the procedure well. PLAN: As ordered. Abhilash Dallas MD [facility]/MODL /[id number] cc: MD Deng Arguelles MD
--- NOTE | 2019-07-07 18:56 | NUR ---
Report given to oncoming nurse of patient's status. Resting in bed. No s/s of acute distress noted. Side rails upx2, call light within reach.
--- NOTE | 2019-07-07 19:20 | NUR ---
Patient received lying in bed. AAO x 3. No complaints of pain. Respirations even and non-labored on 2L NC. Bed locked and in lowest position. Bed rails up x 2. Bed alarm activated. Patient instructed to call for assistance when needed. Call light within reach.
[2019-07-08] VITALS (7 sets, daily range): BP systolic 137–176; BP diastolic 60–72
[2019-07-08] MEDS: SODIUM CHLORIDE 0.9% 1000ML 1,000 ML IV SCH ×2 (00:15→10:15)
--- NOTE | 2019-07-08 00:39 | NUR ---
Dr. Clem Dallas here to see patient. New order received for GI soft diet (low-fat diet).
[2019-07-08] MEDS: CEFEPIME 1GM/NS 0.9% 50 ML 50 ML IV SCH ×2 (01:20→08:37)
[2019-07-08] MEDS: METRONIDAZOLE 500MG/NS 100ML 100 ML IV SCH (05:00)
[2019-07-08 06:14] LABS: HEMATOCRIT 33.4 % (34.2-44.1); HEMOGLOBIN 10.3 g/dL (12.0-16.0); LYMPHOCYTES # (AUTO) 1.2 (1.0-3.2); MEAN CORPUSCULAR HEMOGLOBIN 28.9 pg (28-32); MEAN CORPUSCULAR HGB CONC 30.8 g/dL (31-35); MEAN CORPUSCULAR VOLUME 93.6 fL (81-99); MONOCYTES # (AUTO) 0.7 (0.2-0.8); NEUTROPHILS # (AUTO) 5.9 (2.1-6.9); PLATELET COUNT 101 x10e3/uL (140-360); RED BLOOD COUNT 3.57 x10e6/uL (3.6-5.1); RED CELL DISTRIBUTION WIDTH 14.8 % (11.7-14.4)
[2019-07-08 06:36] LABS: BLOOD UREA NITROGEN 19 mg/dL (7-26); BUN/CREATININE RATIO 25 (6-25); CALCIUM 8.4 mg/dL (8.4-10.2); CARBON DIOXIDE 22 mmol/L (22-29); CHLORIDE 111 mmol/L (98-107); CREATININE, SERUM 0.75 mg/dL (0.57-1.11); EST GLOMERULAR FILTRATION RATE > 60 ML/MIN (60-); GLUCOSE 124 mg/dL (74-118); SODIUM 138 mmol/L (136-145)
--- NOTE | 2019-07-08 07:00 | NUR ---
Patient resting comfortably, Walking rounds done. Shift report given to oncoming nurse regarding patient's status.
[2019-07-08] MEDS ORDERED: ONDANSETRON HCL 4 MG ORAL DISINTEGRATING TAB PO PRN (10:15)
[2019-07-08] MEDS ORDERED: METRONIDAZOLE 500 MG TAB PO SCH (12:00)
[2019-07-08 12:32] LABS: ALANINE AMINOTRANSFERASE 57 IU/L (0-55); ALBUMIN 2.6 g/dL (3.5-5.0); ALBUMIN/GLOBULIN RATIO 0.7 (0.8-2.0); ALKALINE PHOSPHATASE 212 IU/L (40-150)
--- NOTE | 2019-07-08 16:05 | Progress Note ---
DATE: SUBJECTIVE: Ms. Garcia is doing well. She has no complaint. REVIEW OF SYSTEMS: HEENT: Negative. PULMONARY: Negative. CARDIAC: Negative. PHYSICAL EXAMINATION: GENERAL: She is currently alert, oriented, does not seem to be in acute distress. VITAL SIGNS: Stable, currently afebrile. HEENT: She is not icteric. NECK: Supple. CHEST: Clear. HEART: S1, S2. ABDOMEN: Soft. IMPRESSION: 1. Sepsis, present on admission secondary to cholecystitis, status post cholecystectomy, doing well. 2. Urinary tract infection, Escherichia coli, present on admission, doing well. Can discharge home with Keflex 500 mg p.o. t.i.d. for 2 weeks. 3. Acute kidney injury, resolved. 4. Obesity. 5. We will follow. MD JAYLON Doe/HENRI /[id number]
--- NOTE | 2019-07-10 18:57 | Consultation ---
DATE OF CONSULTATION: 07/05/2019 This is a late entry on July 04. HISTORY OF PRESENT ILLNESS: This patient who is a 69-year-old female, who comes to the emergency room with right abdominal pain. The patient started to have pain and fever. The patient has history of hypertension on losartan. She does have history of hysterectomy three years ago, history of hypertension. The patient comes with abdominal pain. She was seen by surgery. She was diagnosed with cholecystitis. I was asked to see her. The patient was having some abdominal pain when I saw her, not feeling well. The patient was seen and examined. Chart reviewed. As mentioned above, the patient was seen on July 04, this was dictated later since during an audit to our medical record, we could not find a note. SOCIAL HISTORY: There is no smoking, drug abuse, or alcohol abuse. FAMILY HISTORY: Hypertension. PAST MEDICAL HISTORY: As above. PAST SURGICAL HISTORY: As above. ALLERGIES: NKA. SOCIAL HISTORY: There is no smoking, drug abuse, or alcohol abuse. FAMILY HISTORY: Otherwise hypertension. REVIEW OF SYSTEMS: HEENT: Negative. PULMONARY: Negative. CARDIAC: Negative. : As above. GI: Negative. PHYSICAL EXAMINATION: GENERAL: She is currently alert, oriented, does not seem to be in acute distress. VITAL SIGNS: Stable, currently afebrile. HEENT: She is not icteric. NECK: Supple. CHEST: Clear. COR: S1, S2. No S3, S4 or murmur. ABDOMEN: Soft. Bowel sounds present. EXTREMITIES: No edema. SKIN: No rash. IMPRESSION: Cholecystitis. Agree with surgical evaluation. Agree with Zosyn. Check blood cultures. Recheck CBC. Recheck Chem panel. Continue with supportive care. Blood cultures ordered. Urine cultures ordered. Discussed with medical team at length. Please refer to the orders. MD JAYLON Doe/MODL /[id number]
== END 2019-07-08 16:19 | disposition home or self-care (01) | DRG 854 ==
LOC: ER 17:41 → ERHOLD 20:31 → MED/SURG2 22:20 → OBSVTOIN 07-05 11:44
PROVIDERS: ADMIT Internal Medicine; ATTEND Internal Medicine
PROC: BF0C1ZZ Plain Radiography of Hepatobiliary System, All using Low Osmolar Contrast (ICD-10-PCS; 2019-07-06)
PROC: 0FT44ZZ Resection of Gallbladder, Percutaneous Endoscopic Approach (ICD-10-PCS; principal; 2019-07-06 07:00)
PROC: 0FC98ZZ Extirpation of Matter from Common Bile Duct, Via Natural or Artificial Opening Endoscopic (ICD-10-PCS; 2019-07-07)
DX: A41.9 Sepsis, unspecified organism (principal); N20.1 Calculus of ureter; K80.62 Calculus of gallbladder and bile duct with acute cholecystitis without obstruction; N39.0 Urinary tract infection, site not specified; N17.9 Acute kidney failure, unspecified; I10 Essential (primary) hypertension; R07.9 Chest pain, unspecified; Z90.710 Acquired absence of both cervix and uterus; Z85.42 Personal history of malignant neoplasm of other parts of uterus; Z82.49 Family history of ischemic heart disease and other diseases of the circulatory system; B96.20 Unspecified Escherichia coli [E. coli] as the cause of diseases classified elsewhere; E66.9 Obesity, unspecified; Z68.38 Body mass index [BMI] 38.0-38.9, adult; D69.6 Thrombocytopenia, unspecified; D64.9 Anemia, unspecified
CPT/HCPCS: 36415; 43260; 71045; 74177; 74183; 74300; 74328; 76705; 80053; 81001; 82150; 82550; 82553; 83690; 83880; 84484; 85007; 85025; 85027; 85610; 85730; 87040; 87086; 87186; 88304; 88342; 93005; 93306; 99284; G0378; J0330; J0692; J1100; J1610; J1885; J2001; J2250; J2270; J2405; J2710; J3010; J7030; J7040; J7050; Q9967

== ENCOUNTER 2020-05-07 12:41 | Emergency (ER) | payer MEDICARE ==
[~2020-05-07] VITALS: Ht 309.9 cm; Wt 95.7 kg
[2020-05-07] MEDS ORDERED: ASPIRIN 81 MG CHEW TAB PO ONE (13:00)
[2020-05-07 13:17] LABS: BASOPHILS # (AUTO) 0.1 (0.0-0.1); EOSINOPHILS # (AUTO) 0.3 (0.0-0.4); EOSINOPHILS % 4.7 % (0.0-6.0); HEMOGLOBIN 12.5 g/dL (12.0-16.0); LYMPHOCYTES % 42.2 % (18.0-39.1); MEAN CORPUSCULAR HEMOGLOBIN 27.8 pg (28-32); MEAN CORPUSCULAR HGB CONC 30.5 g/dL (31-35); MEAN CORPUSCULAR VOLUME 91.3 fL (81-99); MONOCYTES # (AUTO) 0.7 (0.2-0.8); MONOCYTES % 9.1 % (4.4-11.3); NEUTROPHILS # (AUTO) 3.1 (2.1-6.9); NEUTROPHILS % 42.7 % (38.7-80.0); PLATELET COUNT 185 x10e3/uL (140-360); RED BLOOD COUNT 4.49 x10e6/uL (3.6-5.1); RED CELL DISTRIBUTION WIDTH 14.6 % (11.7-14.4)
[2020-05-07 13:28] LABS: ALANINE AMINOTRANSFERASE 18 IU/L (0-55); ALBUMIN 3.5 g/dL (3.5-5.0); ALBUMIN/GLOBULIN RATIO 0.7 (0.8-2.0); ALKALINE PHOSPHATASE 227 IU/L (40-150); ANION GAP 14.6 mmol/L (8-16); BLOOD UREA NITROGEN 21 mg/dL (7-26); BUN/CREATININE RATIO 24 (6-25); CALCIUM 9.2 mg/dL (8.4-10.2); CARBON DIOXIDE 23 mmol/L (22-29); CHLORIDE 104 mmol/L (98-107); CREATINE KINASE 38 IU/L (29-168); CREATININE, SERUM 0.89 mg/dL (0.57-1.11); EST GLOMERULAR FILTRATION RATE > 60 ML/MIN (60-); GLUCOSE 130 mg/dL (74-118); POTASSIUM 3.6 mmol/L (3.5-5.1); SODIUM 138 mmol/L (136-145)
[2020-05-07] MEDS ORDERED: SODIUM CHLORIDE 0.9% 50ML 50 ML ONE (14:19)
[2020-05-07] MEDS ORDERED: IOPAMIDOL 370 MG/ML 200 ML INFUS..BTL INJ ONE (14:19)
== END 2020-05-07 16:23 | disposition home or self-care (01) ==
LOC: ER 12:49
DX: U07.1 COVID-19 (principal); R06.02 Shortness of breath; R53.1 Weakness; R53.81 Other malaise; R10.10 Upper abdominal pain, unspecified; M54.6 Pain in thoracic spine; R11.0 Nausea; R53.83 Other fatigue; I10 Essential (primary) hypertension
CPT/HCPCS: 36415; 71045; 74177; 80053; 82550; 82553; 84484; 85025; 99284; Q9967; U0002

== ENCOUNTER 2021-08-18 14:15 | Inpatient (IN) | payer MEDICARE ==
[~2021-08-18] VITALS: Ht 152.4 cm; Wt 81.6 kg
[2021-08-18] MEDS ORDERED: ASPIRIN 325 MG TAB PO ONE (15:45)
[2021-08-18] MEDS ORDERED: Morphine 4mg Syringe 4 MG/ML INJ IV PRN (15:45)
[2021-08-18] MEDS ORDERED: ONDANSETRON HCL INJ 2MG/ML 2ML 2 MG/ML VIAL IV PRN ×2 (15:45→18:30)
[2021-08-18 16:06] LABS: BASOPHILS # (AUTO) 0.1 (0.0-0.1); BASOPHILS % 0.6 % (0.0-1.0); EOSINOPHILS # (AUTO) 0.2 (0.0-0.4); EOSINOPHILS % 2.9 % (0.0-6.0); HEMATOCRIT 30.6 % (34.2-44.1); HEMOGLOBIN 8.6 g/dL (12.0-16.0); LYMPHOCYTES # (AUTO) 2.8 (1.0-3.2); LYMPHOCYTES % 35.1 % (18.0-39.1); MEAN CORPUSCULAR HEMOGLOBIN 22.1 pg (28-32); MEAN CORPUSCULAR HGB CONC 28.1 g/dL (31-35); MEAN CORPUSCULAR VOLUME 78.7 fL (81-99); MONOCYTES # (AUTO) 0.9 (0.2-0.8); MONOCYTES % 11.6 % (4.4-11.3); NEUTROPHILS % 49.6 % (38.7-80.0); PLATELET COUNT 226 x10e3/uL (140-360); RED BLOOD COUNT 3.89 x10e6/uL (3.6-5.1); RED CELL DISTRIBUTION WIDTH 18.6 % (11.7-14.4)
[2021-08-18 16:18] LABS: ALBUMIN 2.9 g/dL (3.5-5.0); ALBUMIN/GLOBULIN RATIO 0.5 (0.8-2.0); ANION GAP 11.3 mmol/L (8-16); CALCIUM 8.5 mg/dL (8.4-10.2); CREATININE, SERUM 0.73 mg/dL (0.57-1.11); POTASSIUM 3.3 mmol/L (3.5-5.1)
[2021-08-18] MEDS ORDERED: IOPAMIDOL 370 MG/ML 100 ML INFUS..BTL INJ ONE (17:17)
[2021-08-18] MEDS ORDERED: HYDRALAZINE HCL 20 MG/ML VIAL IV STA (18:29)
[2021-08-18] MEDS ORDERED: HEPARIN 25,000 UNIT 1,100 UNIT in DEXTROSE 5% 250ML 250 ML IV SCH (18:30)
[2021-08-18] MEDS ORDERED: HYDRALAZINE HCL 20 MG/ML VIAL IV PRN (18:30)
[2021-08-18] MEDS ORDERED: Morphine 2mg Syringe 2 MG/ML SYR IV PRN (18:30)
[2021-08-18] MEDS ORDERED: HEPARIN SOD (PORCINE) 1000 UNIT/ML SDV IV ONE (18:40)
[2021-08-18] MEDS ORDERED: HEPARIN 25,000 UNIT DRIP IV ONE (19:26)
[2021-08-18] MEDS ORDERED: HEPARIN SOD (PORCINE) 5,000 UNIT/ML VIAL ONE (19:35)
[2021-08-18 21:33] VITALS: BP 137/48
[2021-08-18 22:01] VITALS: BP 137/48
[2021-08-18] MEDS ORDERED: INFLUENZA VIRUS VAC SPLIT INJ 0.5 ML SYR IM SCH (22:06)
[2021-08-18] MEDS ORDERED: PNEUMOCOCCAL VACCINE POLYVALENT 23 MCG/0.5 ML VIAL IM SCH (22:06)
[2021-08-18] MEDS ORDERED: HYDROCODONE/APAP 5MG-325MG TAB PO PRN (23:45)
[2021-08-18 23:55] LABS: CREATINE KINASE MB 0.3 ng/mL (0-5.0)
[2021-08-19] VITALS (7 sets, daily range): BP systolic 105–126; BP diastolic 45–55
[2021-08-19] MEDS ORDERED: POTASSIUM CHLORIDE 20 MEQ TAB CR PO PRN (01:45)
[2021-08-19] MEDS ORDERED: ONDANSETRON HCL INJ 2MG/ML 2ML 2 MG/ML VIAL IV PRN ×2 (01:45)
[2021-08-19] MEDS ORDERED: DOCUSATE SODIUM 100 MG CAP PO PRN (01:45)
[2021-08-19] MEDS ORDERED: SIMETHICONE 80 MG CHEW PO PRN (01:45)
[2021-08-19] MEDS ORDERED: ALBUTEROL/IPRATROPIUM 3 ML NEB NEB PRN (01:45)
[2021-08-19] MEDS ORDERED: HYDRALAZINE HCL 20 MG/ML VIAL IV PRN (01:45)
[2021-08-19] MEDS ORDERED: LIDOCAINE 4% PATCH TP PRN (01:45)
[2021-08-19] MEDS ORDERED: DIPHENHYDRAMINE HCL 25 MG CAP PO PRN (01:45)
[2021-08-19] MEDS ORDERED: DEXTROSE 50% SYRINGE 50 ML IV PRN (01:45)
[2021-08-19] MEDS ORDERED: BENZONATATE 100 MG CAP PO PRN (01:45)
[2021-08-19] MEDS ORDERED: MELATONIN 5 MG TABLET PO PRN (01:45)
[2021-08-19] MEDS ORDERED: HYDROCODONE/APAP 5MG-325MG TAB PO PRN (01:45)
[2021-08-19] MEDS ORDERED: ACETAMINOPHEN 325 MG TAB PO PRN (01:45)
[2021-08-19 05:59] LABS: BASOPHILS # (AUTO) 0.1 (0.0-0.1); BASOPHILS % 0.6 % (0.0-1.0); EOSINOPHILS # (AUTO) 0.2 (0.0-0.4); HEMATOCRIT 26.8 % (34.2-44.1); HEMOGLOBIN 7.6 g/dL (12.0-16.0); LYMPHOCYTES # (AUTO) 3.4 (1.0-3.2); LYMPHOCYTES % 41.9 % (18.0-39.1); MEAN CORPUSCULAR HGB CONC 28.4 g/dL (31-35); MEAN CORPUSCULAR VOLUME 77.7 fL (81-99); MONOCYTES # (AUTO) 0.9 (0.2-0.8); MONOCYTES % 11.7 % (4.4-11.3); NEUTROPHILS # (AUTO) 3.5 (2.1-6.9); NEUTROPHILS % 43.4 % (38.7-80.0); PLATELET COUNT 204 x10e3/uL (140-360); RED BLOOD COUNT 3.45 x10e6/uL (3.6-5.1); RED CELL DISTRIBUTION WIDTH 18.3 % (11.7-14.4)
[2021-08-19 06:35] LABS: ALBUMIN 2.5 g/dL (3.5-5.0); ALBUMIN/GLOBULIN RATIO 0.5 (0.8-2.0); ANION GAP 11.7 mmol/L (8-16); CALCIUM 8.1 mg/dL (8.4-10.2); CHOL/HDL RATIO 2.7 (3.0-3.6); CREATININE, SERUM 0.71 mg/dL (0.57-1.11); POTASSIUM 3.7 mmol/L (3.5-5.1)
[2021-08-19 06:56] LABS: CREATINE KINASE MB 0.2 ng/mL (0-5.0)
[2021-08-19] MEDS: HEPARIN 25,000U/0.45% NS 250ML 250 ML IV SCH (07:00)
[2021-08-19] MEDS: PANTOPRAZOLE SOD 40 MG TABEC PO SCH (08:53)
[2021-08-19] MEDS: HYDROCHLOROTHIAZIDE 25 MG TAB PO SCH (08:54)
[2021-08-19] MEDS: LOSARTAN POTASSIUM 100 MG TAB PO SCH (08:54)
[2021-08-19 13:34] LABS: RETICULOCYTE % 1.4 % (0.8-2.2)
[2021-08-19 14:00] LABS: CREATINE KINASE MB 0.2 ng/mL (0-5.0)
[2021-08-19 14:12] LABS: FERRITIN 9.27 ng/mL (4.63-204.00)
[2021-08-20] VITALS (8 sets, daily range): BP systolic 108–169; BP diastolic 44–59
[2021-08-20 05:37] LABS: BASOPHILS % 0.6 % (0.0-1.0); EOSINOPHILS # (AUTO) 0.3 (0.0-0.4); EOSINOPHILS % 3.8 % (0.0-6.0); HEMATOCRIT 27.2 % (34.2-44.1); HEMOGLOBIN 7.8 g/dL (12.0-16.0); LYMPHOCYTES # (AUTO) 3.2 (1.0-3.2); LYMPHOCYTES % 44.8 % (18.0-39.1); MEAN CORPUSCULAR HEMOGLOBIN 22.2 pg (28-32); MEAN CORPUSCULAR HGB CONC 28.7 g/dL (31-35); MEAN CORPUSCULAR VOLUME 77.3 fL (81-99); MONOCYTES # (AUTO) 0.7 (0.2-0.8); MONOCYTES % 10.2 % (4.4-11.3); NEUTROPHILS # (AUTO) 2.8 (2.1-6.9); NEUTROPHILS % 40.3 % (38.7-80.0); PLATELET COUNT 177 x10e3/uL (140-360); RED BLOOD COUNT 3.52 x10e6/uL (3.6-5.1); RED CELL DISTRIBUTION WIDTH 18.4 % (11.7-14.4)
[2021-08-20 05:56] LABS: ANION GAP 11.8 mmol/L (8-16); CALCIUM 8.2 mg/dL (8.4-10.2); CREATININE, SERUM 0.75 mg/dL (0.57-1.11); POTASSIUM 3.8 mmol/L (3.5-5.1)
[2021-08-20] MEDS: PANTOPRAZOLE SOD 40 MG TABEC PO SCH (07:30)
[2021-08-20] MEDS: HEPARIN 25,000U/0.45% NS 250ML 250 ML IV SCH (10:30)
[2021-08-20] MEDS: LOSARTAN POTASSIUM 100 MG TAB PO SCH (12:00)
[2021-08-20] MEDS: HYDROCHLOROTHIAZIDE 25 MG TAB PO SCH (12:00)
[2021-08-20] MEDS ORDERED: SODIUM FERRIC GLUCONATE COMPLX 125 MG in SODIUM CHLORIDE 0.9% 100 ML 100 ML IV ONE ×2 (13:30→20:00)
[2021-08-20] MEDS ORDERED: SODIUM CHLORIDE 0.9% 250ML 250 ML ONE (20:23)
[2021-08-21] VITALS (8 sets, daily range): BP systolic 125–151; BP diastolic 46–55
[2021-08-21 05:04] LABS: BASOPHILS # (AUTO) 0.1 (0.0-0.1); BASOPHILS % 0.7 % (0.0-1.0); EOSINOPHILS # (AUTO) 0.3 (0.0-0.4); EOSINOPHILS % 3.8 % (0.0-6.0); HEMATOCRIT 28.2 % (34.2-44.1); HEMOGLOBIN 8.1 g/dL (12.0-16.0); LYMPHOCYTES # (AUTO) 2.8 (1.0-3.2); LYMPHOCYTES % 39.9 % (18.0-39.1); MEAN CORPUSCULAR HEMOGLOBIN 22.2 pg (28-32); MEAN CORPUSCULAR HGB CONC 28.7 g/dL (31-35); MEAN CORPUSCULAR VOLUME 77.3 fL (81-99); MONOCYTES # (AUTO) 0.8 (0.2-0.8); NEUTROPHILS % 43.3 % (38.7-80.0); PLATELET COUNT 202 x10e3/uL (140-360); RED BLOOD COUNT 3.65 x10e6/uL (3.6-5.1); RED CELL DISTRIBUTION WIDTH 18.2 % (11.7-14.4)
[2021-08-21 05:32] LABS: ALBUMIN 2.8 g/dL (3.5-5.0); ALBUMIN/GLOBULIN RATIO 0.6 (0.8-2.0); ANION GAP 12.7 mmol/L (8-16); CALCIUM 8.7 mg/dL (8.4-10.2); CREATININE, SERUM 0.72 mg/dL (0.57-1.11); POTASSIUM 3.7 mmol/L (3.5-5.1)
[2021-08-21 05:56] LABS: THYROID STIMULATING HORMONE 10.736 uIU/mL (0.350-4.940)
[2021-08-21] MEDS: PANTOPRAZOLE SOD 40 MG TABEC PO SCH (06:17)
[2021-08-21] MEDS: HEPARIN 25,000U/0.45% NS 250ML 250 ML IV SCH (07:00)
[2021-08-21] MEDS: LOSARTAN POTASSIUM 100 MG TAB PO SCH (08:23)
[2021-08-21] MEDS: HYDROCHLOROTHIAZIDE 25 MG TAB PO SCH (08:23)
[2021-08-21] MEDS: FOLIC ACID/CYANOCOB/PYRIDOXINE TAB PO SCH (08:23)
[2021-08-21] MEDS ORDERED: IRON SUCROSE 100 MG in SODIUM CHLORIDE 0.9% 100 ML 100 ML IV SCH (09:00)
[2021-08-21] MEDS ORDERED: REGADENOSON 0.4 MG/5 ML SYR IV ONE (09:43)
[2021-08-21] MEDS: IRON SUCROSE 100 MG in SODIUM CHLORIDE 0.9% 100 ML 100 ML IV SCH (23:27)
[2021-08-22] VITALS (7 sets, daily range): BP systolic 118–140; BP diastolic 40–53
[2021-08-22] MEDS: PANTOPRAZOLE SOD 40 MG TABEC PO SCH (09:15)
[2021-08-22] MEDS: LOSARTAN POTASSIUM 100 MG TAB PO SCH (09:15)
[2021-08-22] MEDS: FOLIC ACID/CYANOCOB/PYRIDOXINE TAB PO SCH (09:15)
[2021-08-22] MEDS: HYDROCHLOROTHIAZIDE 25 MG TAB PO SCH (09:16)
[2021-08-22] MEDS ORDERED: LIDOCAINE HCL 2% LOCAL INJ 5 ML SDV VIAL INJ ONE (12:42)
[2021-08-22] MEDS ORDERED: PROPOFOL IV EMULSION 10 MG/ML 20 ML VIAL ONE (12:42)
[2021-08-22] MEDS: APIXABAN 5 MG TABLET PO SCH (17:24)
[2021-08-22 17:38] LABS: BASOPHILS # (AUTO) 0.1 (0.0-0.1); BASOPHILS % 0.7 % (0.0-1.0); EOSINOPHILS # (AUTO) 0.1 (0.0-0.4); EOSINOPHILS % 1.9 % (0.0-6.0); HEMATOCRIT 30.2 % (34.2-44.1); HEMOGLOBIN 8.5 g/dL (12.0-16.0); LYMPHOCYTES # (AUTO) 2.6 (1.0-3.2); LYMPHOCYTES % 34.5 % (18.0-39.1); MEAN CORPUSCULAR HGB CONC 28.1 g/dL (31-35); MEAN CORPUSCULAR VOLUME 78.2 fL (81-99); MONOCYTES # (AUTO) 0.8 (0.2-0.8); MONOCYTES % 11.3 % (4.4-11.3); NEUTROPHILS # (AUTO) 3.8 (2.1-6.9); NEUTROPHILS % 51.3 % (38.7-80.0); PLATELET COUNT 197 x10e3/uL (140-360); RED BLOOD COUNT 3.86 x10e6/uL (3.6-5.1); RED CELL DISTRIBUTION WIDTH 18.8 % (11.7-14.4)
[2021-08-22] MEDS: IRON SUCROSE 100 MG in SODIUM CHLORIDE 0.9% 100 ML 100 ML IV SCH (19:56)
[2021-08-23 01:09] VITALS: BP 126/57
[2021-08-23 05:01] VITALS: BP 119/47
[2021-08-23 05:25] LABS: BASOPHILS # (AUTO) 0.1 (0.0-0.1); BASOPHILS % 0.7 % (0.0-1.0); EOSINOPHILS # (AUTO) 0.2 (0.0-0.4); EOSINOPHILS % 2.2 % (0.0-6.0); HEMATOCRIT 27.8 % (34.2-44.1); HEMOGLOBIN 8.1 g/dL (12.0-16.0); LYMPHOCYTES # (AUTO) 3.3 (1.0-3.2); LYMPHOCYTES % 40.8 % (18.0-39.1); MEAN CORPUSCULAR HEMOGLOBIN 22.2 pg (28-32); MEAN CORPUSCULAR HGB CONC 29.1 g/dL (31-35); MEAN CORPUSCULAR VOLUME 76.2 fL (81-99); MONOCYTES # (AUTO) 0.9 (0.2-0.8); MONOCYTES % 10.8 % (4.4-11.3); NEUTROPHILS # (AUTO) 3.6 (2.1-6.9); PLATELET COUNT 192 x10e3/uL (140-360); RED BLOOD COUNT 3.65 x10e6/uL (3.6-5.1); RED CELL DISTRIBUTION WIDTH 18.4 % (11.7-14.4)
[2021-08-23 05:46] LABS: ANION GAP 12.4 mmol/L (8-16); CALCIUM 8.3 mg/dL (8.4-10.2); CREATININE, SERUM 0.7 mg/dL (0.57-1.11); POTASSIUM 3.4 mmol/L (3.5-5.1)
[2021-08-23 07:49] VITALS: BP 122/48
[2021-08-23] MEDS: PANTOPRAZOLE SOD 40 MG TABEC PO SCH (09:16)
[2021-08-23] MEDS: LOSARTAN POTASSIUM 100 MG TAB PO SCH (09:16)
[2021-08-23] MEDS: FOLIC ACID/CYANOCOB/PYRIDOXINE TAB PO SCH (09:16)
[2021-08-23] MEDS: HYDROCHLOROTHIAZIDE 25 MG TAB PO SCH (09:16)
[2021-08-23] MEDS: APIXABAN 5 MG TABLET PO SCH (09:17)
[2021-08-23 11:08] VITALS: BP 122/78
[2021-08-23 11:13] VITALS: BP 123/51
== END 2021-08-23 16:33 | disposition home or self-care (01) | DRG 176 ==
LOC: ER 14:46 → ERHOLD 18:27 → INTOOBSV 18:27 → MED/SURG 21:35 → OBSVTOIN 08-20 15:22
PROVIDERS: ADMIT Internal Medicine; ATTEND Internal Medicine
PROC: 0DJ08ZZ Inspection of Upper Intestinal Tract, Via Natural or Artificial Opening Endoscopic (ICD-10-PCS; principal; 2021-08-22 13:20)
DX: I26.99 Other pulmonary embolism without acute cor pulmonale (principal); I10 Essential (primary) hypertension; Z20.822 Contact with and (suspected) exposure to COVID-19; Z86.16 Personal history of COVID-19; R91.1 Solitary pulmonary nodule; K29.70 Gastritis, unspecified, without bleeding; K44.9 Diaphragmatic hernia without obstruction or gangrene; Z82.49 Family history of ischemic heart disease and other diseases of the circulatory system; D50.9 Iron deficiency anemia, unspecified
CPT/HCPCS: 36415; 43235; 70450; 71045; 71260; 78452; 80048; 80053; 80061; 82270; 82550; 82553; 82607; 82728; 82746; 82948; 83540; 83880; 84443; 84466; 84484; 85025; 85045; 85379; 85651; 85730; 86850; 86900; 93005; 93017; 93306; 93970; 94799; 96360; 96365; 99284; A9502; G0378; J0360; J1644; J1756; J2001; J2270; J2405; J2916; J7050; Q9967; U0002

== ENCOUNTER 2022-08-06 13:13 | Inpatient (IN) | payer MEDICARE ==
[~2022-08-06] VITALS: Ht 157.5 cm; Wt 81.6 kg
[2022-08-06] MEDS ORDERED: ONDANSETRON HCL INJ 2MG/ML 2ML 2 MG/ML VIAL IV STA (13:29)
[2022-08-06] MEDS ORDERED: SODIUM CHLORIDE FLUSH 10 ML SYR IV PRN (13:30)
[2022-08-06 13:38] LABS: BASOPHILS % 0.8 % (0.0-1.0); EOSINOPHILS # (AUTO) 0.1 (0.0-0.4); EOSINOPHILS % 1.2 % (0.0-6.0); HEMATOCRIT 23.1 % (34.2-44.1); LYMPHOCYTES # (AUTO) 1.9 (1.0-3.2); LYMPHOCYTES % 38.8 % (18.0-39.1); MEAN CORPUSCULAR HEMOGLOBIN 21.9 pg (28-32); MEAN CORPUSCULAR HGB CONC 28.6 g/dL (31-35); MEAN CORPUSCULAR VOLUME 76.5 fL (81-99); MONOCYTES # (AUTO) 0.6 (0.2-0.8); MONOCYTES % 11.7 % (4.4-11.3); NEUTROPHILS # (AUTO) 2.3 (2.1-6.9); NEUTROPHILS % 47.3 % (38.7-80.0); PLATELET COUNT 170 x10e3/uL (140-360); RED BLOOD COUNT 3.02 x10e6/uL (3.6-5.1); RED CELL DISTRIBUTION WIDTH 18.3 % (11.7-14.4)
[2022-08-06 13:43] LABS: HEMOGLOBIN 6.6 g/dL (12.0-16.0)
[2022-08-06] MEDS ORDERED: SODIUM CHLORIDE 0.9% 250ML 250 ML IV ONE (13:45)
[2022-08-06 13:50] LABS: CLARITY,URINE CLEAR (CLEAR); COLOR,URINE YELLOW (YELLOW); LEUKOCYTE ESTERASE ,URINE SMALL (NEGATIVE); NITRITE,URINE NEGATIVE (NEGATIVE)
[2022-08-06 13:51] LABS: KETONES,URINE NEGATIVE (NEGATIVE); PROTEIN,URINE DIPSTICK NEGATIVE (NEGATIVE); URINE UROBILINOGEN 0.2 mg/dL (0.2 - 1)
[2022-08-06 13:56] LABS: BACTERIA,URINE FEW /HPF; EPITHELIAL CELLS,URINE MODERATE /LPF; RBC,URINE 0-5 /HPF (0-5)
[2022-08-06 14:00] LABS: ALBUMIN 3.1 g/dL (3.5-5.0); ALBUMIN/GLOBULIN RATIO 0.5 (0.8-2.0); CALCIUM 9.1 mg/dL (8.4-10.2); CREATININE, SERUM 0.74 mg/dL (0.57-1.11)
[2022-08-06] MEDS ORDERED: ONDANSETRON HCL INJ 2MG/ML 2ML 2 MG/ML VIAL IV PRN (15:30)
[2022-08-06] MEDS: SODIUM CHLORIDE 0.9% 1000ML 1,000 ML IV SCH ×2 (17:37→23:30)
[2022-08-06] MEDS ORDERED: SODIUM CHLORIDE 0.9% 250ML 250 ML ONE (18:23)
[2022-08-06 20:20] VITALS: BP 159/60; PULSE 68; RESP 20; TEMP 98.8; O2SAT 100
[2022-08-06 21:00] VITALS: BP 159/60; PULSE 68; RESP 20; TEMP 98.8; O2SAT 100
[2022-08-07] VITALS (10 sets, daily range): BP systolic 98–179; BP diastolic 47–66; PULSE 69–96; RESP 16–20; TEMP 98–99; O2SAT 95–100
[2022-08-07] MEDS: SODIUM CHLORIDE 0.9% 1000ML 1,000 ML IV SCH (04:35)
[2022-08-07 05:49] LABS: BASOPHILS % 0.5 % (0.0-1.0); EOSINOPHILS # (AUTO) 0.1 (0.0-0.4); EOSINOPHILS % 2.2 % (0.0-6.0); HEMATOCRIT 33.7 % (34.2-44.1); HEMOGLOBIN 10.2 g/dL (12.0-16.0); LYMPHOCYTES # (AUTO) 2.5 (1.0-3.2); LYMPHOCYTES % 40.6 % (18.0-39.1); MEAN CORPUSCULAR HEMOGLOBIN 23.3 pg (28-32); MEAN CORPUSCULAR HGB CONC 30.3 g/dL (31-35); MEAN CORPUSCULAR VOLUME 77.1 fL (81-99); MONOCYTES # (AUTO) 0.7 (0.2-0.8); MONOCYTES % 11.3 % (4.4-11.3); NEUTROPHILS # (AUTO) 2.7 (2.1-6.9); NEUTROPHILS % 45.2 % (38.7-80.0); PLATELET COUNT 150 x10e3/uL (140-360); RED BLOOD COUNT 4.37 x10e6/uL (3.6-5.1); RED CELL DISTRIBUTION WIDTH 18.7 % (11.7-14.4)
[2022-08-07 06:39] LABS: ALBUMIN 2.9 g/dL (3.5-5.0); ALBUMIN/GLOBULIN RATIO 0.6 (0.8-2.0); ANION GAP 10.9 mmol/L (8-16); CALCIUM 8.7 mg/dL (8.4-10.2); CREATININE, SERUM 0.66 mg/dL (0.57-1.11); POTASSIUM 3.9 mmol/L (3.5-5.1)
[2022-08-07] MEDS ORDERED: HYDRALAZINE HCL 20 MG/ML VIAL IV PRN (09:30)
[2022-08-07] MEDS ORDERED: IOPAMIDOL 370 MG/ML 100 ML INFUS..BTL INJ ONE (10:04)
[2022-08-07 10:20] LABS: THYROID STIMULATING HORMONE 3.914 uIU/mL (0.350-4.940)
[2022-08-07] MEDS: LISINOPRIL 10 MG TAB PO SCH (12:54)
[2022-08-08] VITALS (7 sets, daily range): BP systolic 135–159; BP diastolic 52–66; PULSE 62–76; RESP 18–22; TEMP 97.1–98.7; O2SAT 93–99
[2022-08-08 00:29] LABS: FERRITIN 11.32 ng/mL (4.63-204.00)
[2022-08-08 06:49] LABS: BASOPHILS % 0.6 % (0.0-1.0); EOSINOPHILS # (AUTO) 0.2 (0.0-0.4); EOSINOPHILS % 3.6 % (0.0-6.0); HEMATOCRIT 35.5 % (34.2-44.1); HEMOGLOBIN 10.8 g/dL (12.0-16.0); LYMPHOCYTES # (AUTO) 2.5 (1.0-3.2); LYMPHOCYTES % 39.1 % (18.0-39.1); MEAN CORPUSCULAR HEMOGLOBIN 23.4 pg (28-32); MEAN CORPUSCULAR HGB CONC 30.4 g/dL (31-35); MONOCYTES # (AUTO) 0.8 (0.2-0.8); MONOCYTES % 12.8 % (4.4-11.3); NEUTROPHILS # (AUTO) 2.8 (2.1-6.9); NEUTROPHILS % 43.6 % (38.7-80.0); PLATELET COUNT 169 x10e3/uL (140-360); RED BLOOD COUNT 4.61 x10e6/uL (3.6-5.1); RED CELL DISTRIBUTION WIDTH 19.1 % (11.7-14.4)
[2022-08-08 06:55] LABS: ANION GAP 11.7 mmol/L (8-16); CALCIUM 9.2 mg/dL (8.4-10.2); CREATININE, SERUM 0.69 mg/dL (0.57-1.11); POTASSIUM 3.7 mmol/L (3.5-5.1)
[2022-08-08 06:56] LABS: CHOL/HDL RATIO 2.4 (3.0-3.6)
[2022-08-08] MEDS: LISINOPRIL 10 MG TAB PO SCH (09:00)
[2022-08-08] MEDS: IRON SUCROSE 100 MG in SODIUM CHLORIDE 0.9% 100 ML IV SCH (10:47)
[2022-08-08] MEDS ORDERED: PROPOFOL IV EMULSION 10 MG/ML 20 ML VIAL ONE (13:36)
[2022-08-08] MEDS ORDERED: LIDOCAINE HCL 2% LOCAL INJ 5 ML SDV VIAL INJ ONE (13:36)
[2022-08-08] MEDS ORDERED: PROPOFOL IV EMULSION 10 MG/ML 50 ML VIAL IV ONE (13:36)
[2022-08-09 04:00] VITALS: BP 132/55; PULSE 68; RESP 18; TEMP 98.6; O2SAT 96
[2022-08-09 08:23] VITALS: BP 144/58; PULSE 67; RESP 16; TEMP 98.6; O2SAT 97
[2022-08-09] MEDS: IRON SUCROSE 100 MG in SODIUM CHLORIDE 0.9% 100 ML IV SCH (09:00)
[2022-08-09] MEDS: LISINOPRIL 10 MG TAB PO SCH (09:00)
[2022-08-09 13:17] VITALS: BP 138/53; PULSE 72; RESP 18; TEMP 98; O2SAT 99
== END 2022-08-09 14:21 | disposition home or self-care (01) | DRG 812 ==
LOC: ER 13:18 → ERHOLD 15:24 → MED/SURG3 20:20 → OBSVTOIN 08-08 10:46
PROVIDERS: ADMIT Internal Medicine; ATTEND Internal Medicine
PROC: 30233N1 Transfusion of Nonautologous Red Blood Cells into Peripheral Vein, Percutaneous Approach (ICD-10-PCS; principal; 2022-08-06)
PROC: 0DB78ZX Excision of Stomach, Pylorus, Via Natural or Artificial Opening Endoscopic, Diagnostic (ICD-10-PCS; 2022-08-08)
DX: D50.9 Iron deficiency anemia, unspecified (principal); K22.10 Ulcer of esophagus without bleeding; I10 Essential (primary) hypertension; R21 Rash and other nonspecific skin eruption; E66.01 Morbid (severe) obesity due to excess calories; Z68.32 Body mass index [BMI] 32.0-32.9, adult; K44.9 Diaphragmatic hernia without obstruction or gangrene; K29.70 Gastritis, unspecified, without bleeding; Z90.49 Acquired absence of other specified parts of digestive tract; Z86.16 Personal history of COVID-19
CPT/HCPCS: 36415; 43239; 71045; 71260; 74177; 80048; 80053; 80061; 81001; 82607; 82728; 82746; 83540; 83880; 84443; 84466; 84484; 85025; 85045; 86850; 86900; 86920; 88304; 88305; 88312; 88342; 93005; 94760; 96361; 99284; G0378; J1756; J2001; J2405; J7030; J7050; P9016; Q9967

== ENCOUNTER 2022-09-27 18:42 | Emergency (ER) | payer MEDICARE ==
[~2022-09-27] VITALS: Ht 157.5 cm; Wt 77.1 kg
[2022-09-27] MEDS ORDERED: KETOROLAC TROMETHAMINE 30 MG/ML VIAL IV STA (18:55)
[2022-09-27 19:11] LABS: BASOPHILS # (AUTO) 0.1 (0.0-0.1); BASOPHILS % 0.6 % (0.0-1.0); EOSINOPHILS # (AUTO) 0.1 (0.0-0.4); EOSINOPHILS % 1.3 % (0.0-6.0); HEMATOCRIT 38.7 % (34.2-44.1); HEMOGLOBIN 12.2 g/dL (12.0-16.0); LYMPHOCYTES # (AUTO) 2.5 (1.0-3.2); MEAN CORPUSCULAR HEMOGLOBIN 26.4 pg (28-32); MEAN CORPUSCULAR HGB CONC 31.5 g/dL (31-35); MEAN CORPUSCULAR VOLUME 83.8 fL (81-99); MONOCYTES # (AUTO) 0.8 (0.2-0.8); NEUTROPHILS # (AUTO) 5.1 (2.1-6.9); NEUTROPHILS % 59.9 % (38.7-80.0); PLATELET COUNT 123 x10e3/uL (140-360); RED BLOOD COUNT 4.62 x10e6/uL (3.6-5.1); RED CELL DISTRIBUTION WIDTH 24.8 % (11.7-14.4)
[2022-09-27 19:27] LABS: ALBUMIN 3.1 g/dL (3.5-5.0); ALBUMIN/GLOBULIN RATIO 0.6 (0.8-2.0); ANION GAP 14.6 mmol/L (8-16); CALCIUM 9.5 mg/dL (8.4-10.2); CREATININE, SERUM 0.79 mg/dL (0.57-1.11); POTASSIUM 3.6 mmol/L (3.5-5.1)
[2022-09-27 19:58] LABS: CLARITY,URINE HAZY (CLEAR); COLOR,URINE YELLOW (YELLOW); LEUKOCYTE ESTERASE ,URINE MODERATE (NEGATIVE); NITRITE,URINE POSITIVE (NEGATIVE); PROTEIN,URINE DIPSTICK 1+ (NEGATIVE)
[2022-09-27 19:59] LABS: KETONES,URINE TRACE (NEGATIVE); URINE UROBILINOGEN 4 mg/dL (0.2 - 1)
[2022-09-27 20:01] LABS: BACTERIA,URINE MANY /HPF; RBC,URINE 0-5 /HPF (0-5); WBC,URINE (MAN) >50 /HPF (0-5)
[2022-09-27 20:02] LABS: EPITHELIAL CELLS,URINE MANY /LPF
[2022-09-27] MEDS ORDERED: IOPAMIDOL 370 MG/ML 100 ML INFUS..BTL INJ ONE (20:02)
[2022-09-27] MEDS ORDERED: METHOCARBAMOL750 MG PO (20:39)
[2022-09-27] MEDS ORDERED: NAPROSYN500 MG PO (20:39)
[2022-09-27] MEDS ORDERED: CEFDINIR300 MG PO (20:39)
[2022-09-27 21:17] VITALS: BP 157/65; PULSE 74; RESP 18; TEMP 98.9; O2SAT 100
== END 2022-09-27 21:10 | disposition home or self-care (01) ==
LOC: ER 18:48
DX: S29.012A Strain of muscle and tendon of back wall of thorax, initial encounter (principal); N39.0 Urinary tract infection, site not specified; R07.9 Chest pain, unspecified; R06.02 Shortness of breath; I10 Essential (primary) hypertension; X50.9XXA Other and unspecified overexertion or strenuous movements or postures, initial encounter; Z79.899 Other long term (current) drug therapy
CPT/HCPCS: 36415; 71045; 71260; 80053; 81001; 83880; 84484; 85025; 85379; 93005; 99284; J1885; Q9967

== ENCOUNTER 2024-05-19 16:34 | Inpatient (IN) | payer MEDICARE ==
[~2024-05-19] VITALS: Ht 152.4 cm; Wt 73.0 kg
[~2024-05-19 16:34] MED LIST changes: +BACTRIM DS TAB1 EACH PO; +CEFDINIR300 MG PO; +CEPHALEXIN500 MG PO; +METHOCARBAMOL750 MG PO; +NAPROSYN500 MG PO
[2024-05-19 17:52] LABS: BASOPHILS % 0.5 % (0.0-1.0); EOSINOPHILS # (AUTO) 0.1 (0.0-0.4); EOSINOPHILS % 0.9 % (0.0-6.0); LYMPHOCYTES # (AUTO) 1.3 (1.0-3.2); LYMPHOCYTES % 22.7 % (18.0-39.1); MEAN CORPUSCULAR HGB CONC 26.3 g/dL (31-35); MEAN CORPUSCULAR VOLUME 60.9 fL (81-99); MONOCYTES # (AUTO) 0.6 (0.2-0.8); MONOCYTES % 9.9 % (4.4-11.3); NEUTROPHILS # (AUTO) 3.7 (2.1-6.9); NEUTROPHILS % 65.3 % (38.7-80.0); PLATELET COUNT 111 x10e3/uL (140-360); RED BLOOD COUNT 3.25 x10e6/uL (3.6-5.1); RED CELL DISTRIBUTION WIDTH 21.7 % (11.7-14.4); WHITE BLOOD COUNT 5.63 x10e3/uL (4.8-10.8)
[2024-05-19] MEDS: SODIUM CHLORIDE 0.9% 1000ML 2,310 ML IV ONE (17:56)
[2024-05-19 17:58] LABS: HEMATOCRIT 19.8 % (34.2-44.1); HEMOGLOBIN 5.2 g/dL (12.0-16.0)
[2024-05-19 18:10] LABS: CORONAVIRUS COVID-19 AG NEGATIVE (NEGATIVE); INFLUENZA A AG NEGATIVE (NEGATIVE); INFLUENZA B AG NEGATIVE (NEGATIVE)
[2024-05-19 18:18] LABS: ALBUMIN 2.9 g/dL (3.5-5.0); ALBUMIN/GLOBULIN RATIO 0.6 (0.8-2.0); ANION GAP 14.6 mmol/L (8-16); BILIRUBIN,TOTAL 0.5 mg/dL (0.2-1.2); CALCIUM 8.8 mg/dL (8.4-10.2); CREATININE, SERUM 0.66 mg/dL (0.57-1.11); POTASSIUM 3.6 mmol/L (3.5-5.1); TOTAL PROTEIN 7.5 g/dL (6.5-8.1)
[2024-05-19] MEDS ORDERED: IOPAMIDOL 370 MG/ML 100 ML INFUS..BTL INJ ONE (18:31)
[2024-05-19 18:38] LABS: INR 1.55; PROTHROMBIN TIME 19.4 seconds (11.9-14.5)
[2024-05-19 18:39] LABS: PARTIAL THROMBOPLASTIN TIME 33.7 seconds (23.8-35.5)
[2024-05-19] MEDS ORDERED: SODIUM CHLORIDE FLUSH 10 ML SYR INJ PRN (20:45)
[2024-05-19] MEDS ORDERED: FUROSEMIDE INJ 10 MG/ML 2 ML VIAL IV SCH (20:45)
[2024-05-19 22:10] VITALS: PULSE 87; RESP 18; O2SAT 98
[2024-05-19 23:00] VITALS: BP 160/54; PULSE 90; RESP 21; TEMP 98.1; O2SAT 99
[2024-05-20] VITALS (17 sets, daily range): BP systolic 128–153; BP diastolic 43–64; PULSE 74–90; RESP 16–22; TEMP 97.7–100; O2SAT 92–100
[2024-05-20] MEDS: DIPHENHYDRAMINE HCL INJ 50 MG/ML VIAL IV ONE (01:02)
[2024-05-20] MEDS: SODIUM CHLORIDE 0.9% 250ML 250 ML IV ONE (01:02)
[2024-05-20 03:00] LABS: CLARITY,URINE CLEAR (CLEAR); COLOR,URINE YELLOW (YELLOW)
[2024-05-20 03:01] LABS: BILIRUBIN,URINE NEGATIVE (NEGATIVE); GLUCOSE, URINE NEGATIVE (NEGATIVE); KETONES,URINE NEGATIVE (NEGATIVE); LEUKOCYTE ESTERASE ,URINE SMALL (NEGATIVE); NITRITE,URINE POSITIVE (NEGATIVE); PH,URINE 6.5 (5 - 7); PROTEIN,URINE DIPSTICK NEGATIVE (NEGATIVE)
[2024-05-20 03:13] LABS: BACTERIA,URINE MANY /HPF; EPITHELIAL CELLS,URINE FEW /LPF; RENAL EPITHELIAL CELLS,URINE FEW
[2024-05-20 03:30] LABS: BASOPHILS % 0.6 % (0.0-1.0); EOSINOPHILS # (AUTO) 0.1 (0.0-0.4); EOSINOPHILS % 2.1 % (0.0-6.0); LYMPHOCYTES # (AUTO) 1.3 (1.0-3.2); LYMPHOCYTES % 25.1 % (18.0-39.1); MEAN CORPUSCULAR HEMOGLOBIN 16.6 pg (28-32); MEAN CORPUSCULAR HGB CONC 26.7 g/dL (31-35); MEAN CORPUSCULAR VOLUME 62.1 fL (81-99); MONOCYTES # (AUTO) 0.5 (0.2-0.8); MONOCYTES % 10.2 % (4.4-11.3); NEUTROPHILS # (AUTO) 3.2 (2.1-6.9); NEUTROPHILS % 61.6 % (38.7-80.0); PLATELET COUNT 101 x10e3/uL (140-360); RED BLOOD COUNT 3.01 x10e6/uL (3.6-5.1); RED CELL DISTRIBUTION WIDTH 23.6 % (11.7-14.4); WHITE BLOOD COUNT 5.18 x10e3/uL (4.8-10.8)
[2024-05-20 03:47] LABS: INR 1.17; PROTHROMBIN TIME 15.6 seconds (11.9-14.5)
[2024-05-20 03:48] LABS: PARTIAL THROMBOPLASTIN TIME 36.1 seconds (23.8-35.5)
[2024-05-20 03:52] LABS: ALBUMIN 2.6 g/dL (3.5-5.0); ALBUMIN/GLOBULIN RATIO 0.6 (0.8-2.0); ANION GAP 10.3 mmol/L (8-16); BILIRUBIN,TOTAL 0.7 mg/dL (0.2-1.2); CREATININE, SERUM 0.63 mg/dL (0.57-1.11); TOTAL PROTEIN 6.7 g/dL (6.5-8.1)
[2024-05-20 03:59] LABS: TROPONIN I 0.022 ng/mL (0-0.300)
[2024-05-20 04:07] LABS: POTASSIUM 3.3 mmol/L (3.5-5.1)
[2024-05-20 04:08] LABS: BILIRUBIN,DIRECT 0.4 mg/dL (0.0-0.5)
[2024-05-20 04:11] LABS: HEMATOCRIT 18.7 % (34.2-44.1)
[2024-05-20 04:23] LABS: THYROID STIMULATING HORMONE 3.258 uIU/mL (0.350-4.940)
[2024-05-20 04:36] LABS: FOLATE 6.3 ng/mL (7.0-15.4)
[2024-05-20] MEDS: SODIUM CHLORIDE 0.9% 250ML 250 ML ONE ×3 (07:19→16:41)
[2024-05-20 08:09] LABS: BASOPHILS % 0.9 % (0.0-1.0); EOSINOPHILS # (AUTO) 0.1 (0.0-0.4); EOSINOPHILS % 2.7 % (0.0-6.0); LYMPHOCYTES # (AUTO) 1.1 (1.0-3.2); LYMPHOCYTES % 24.9 % (18.0-39.1); MEAN CORPUSCULAR HEMOGLOBIN 16.7 pg (28-32); MEAN CORPUSCULAR HGB CONC 26.1 g/dL (31-35); MEAN CORPUSCULAR VOLUME 63.8 fL (81-99); MONOCYTES # (AUTO) 0.5 (0.2-0.8); MONOCYTES % 11.9 % (4.4-11.3); NEUTROPHILS # (AUTO) 2.6 (2.1-6.9); NEUTROPHILS % 59.2 % (38.7-80.0); PLATELET COUNT 100 x10e3/uL (140-360); RED BLOOD COUNT 3.18 x10e6/uL (3.6-5.1); RED CELL DISTRIBUTION WIDTH 23.3 % (11.7-14.4); WHITE BLOOD COUNT 4.45 x10e3/uL (4.8-10.8)
[2024-05-20 08:15] LABS: HEMOGLOBIN 5.3 g/dL (12.0-16.0)
[2024-05-20 08:16] LABS: HEMATOCRIT 20.3 % (34.2-44.1)
[2024-05-20 08:40] LABS: ALBUMIN 2.5 g/dL (3.5-5.0); ALBUMIN/GLOBULIN RATIO 0.6 (0.8-2.0); ANION GAP 12.5 mmol/L (8-16); BILIRUBIN,TOTAL 0.7 mg/dL (0.2-1.2); CALCIUM 8.4 mg/dL (8.4-10.2); CREATININE, SERUM 0.63 mg/dL (0.57-1.11); POTASSIUM 3.5 mmol/L (3.5-5.1); TOTAL PROTEIN 6.8 g/dL (6.5-8.1)
[2024-05-20] MEDS ORDERED: HYDROXYZINE HCL 10 MG TAB PO PRN (08:45)
[2024-05-20] MEDS ORDERED: ACETAMINOPHEN 325 MG TAB PO PRN (08:45)
[2024-05-20] MEDS: LORATADINE 10 MG TAB PO SCH (09:13)
[2024-05-20 11:20] LABS: ANISOCYTOSIS SLIGHT; EOSINOPHILS % (MANUAL) 2 % (0-7); HYPOCHROMASIA SLIGHT; LYMPHOCYTES % (MANUAL) 33 % (19-48); MICROCYTOSIS SLIGHT; MONOCYTES % (MANUAL) 7 % (3.4-9.0); NEUTROPHILS % (MANUAL) 58 % (40-74); PLATELET ESTIMATE SLIGHTLY DECREASED
[2024-05-20 11:21] LABS: PLATELET MORPHOLOGY COMMENT NORMAL
[2024-05-20] MEDS ORDERED: IOPAMIDOL 370 MG/ML 100 ML INFUS..BTL INJ ONE (22:14)
[2024-05-21] VITALS (10 sets, daily range): BP systolic 139–164; BP diastolic 49–64; PULSE 61–77; RESP 17–22; TEMP 98.1–98.9; O2SAT 97–100
[2024-05-21 06:29] LABS: BASOPHILS % 0.6 % (0.0-1.0); EOSINOPHILS # (AUTO) 0.2 (0.0-0.4); EOSINOPHILS % 3.4 % (0.0-6.0); LYMPHOCYTES # (AUTO) 1.3 (1.0-3.2); MEAN CORPUSCULAR HEMOGLOBIN 18.4 pg (28-32); MEAN CORPUSCULAR HGB CONC 27.6 g/dL (31-35); MEAN CORPUSCULAR VOLUME 66.6 fL (81-99); MONOCYTES # (AUTO) 0.7 (0.2-0.8); MONOCYTES % 12.1 % (4.4-11.3); NEUTROPHILS # (AUTO) 3.1 (2.1-6.9); NEUTROPHILS % 58.5 % (38.7-80.0); PLATELET COUNT 106 x10e3/uL (140-360); RED BLOOD COUNT 3.26 x10e6/uL (3.6-5.1); RED CELL DISTRIBUTION WIDTH 26.4 % (11.7-14.4); WHITE BLOOD COUNT 5.36 x10e3/uL (4.8-10.8)
[2024-05-21 06:57] LABS: ANION GAP 10.5 mmol/L (8-16); CALCIUM 8.3 mg/dL (8.4-10.2); CREATININE, SERUM 0.7 mg/dL (0.57-1.11); POTASSIUM 3.5 mmol/L (3.5-5.1)
[2024-05-21 07:04] LABS: HEMATOCRIT 21.7 % (34.2-44.1)
[2024-05-21 07:07] LABS: TROPONIN I 0.018 ng/mL (0-0.300)
[2024-05-21] MEDS: IRON SUCROSE 100 MG in SODIUM CHLORIDE 0.9% 100 ML IV SCH (09:57)
[2024-05-21] MEDS: FOLIC ACID/CYANOCOB/PYRIDOXINE TAB PO SCH (10:04)
[2024-05-21 11:09] LABS: CALCIUM 8.3 mg/dL (8.7-10.3)
[2024-05-21] MEDS: DIPHENHYDRAMINE HCL INJ 50 MG/ML VIAL IV ONE (13:42)
[2024-05-21] MEDS: DEXAMETHASONE SOD PHOS 10 MG/1 ML VIAL IV ONE (13:43)
[2024-05-21] MEDS: FAMOTIDINE 20 MG/2 ML VIAL IV ONE (13:43)
[2024-05-21] MEDS: SODIUM CHLORIDE 0.9% 250ML 250 ML IV ONE (13:44)
[2024-05-21] MEDS: ACETAMINOPHEN 325 MG TAB PO STA (13:53)
[2024-05-21 14:57] LABS: TROPONIN I 0.017 ng/mL (0-0.300)
[2024-05-21] MEDS: HYDROCODONE/APAP 7.5MG-325MG 1 EA TAB PO PRN (16:29)
[2024-05-21] MEDS: FUROSEMIDE INJ 10 MG/ML 2 ML VIAL IV PRN (17:45)
[2024-05-22] VITALS (9 sets, daily range): BP systolic 126–170; BP diastolic 38–83; PULSE 58–79; RESP 17–21; TEMP 97.9–98.6; O2SAT 97–100
[2024-05-22 07:26] LABS: ALBUMIN 2.7 g/dL (3.5-5.0); ALBUMIN/GLOBULIN RATIO 0.6 (0.8-2.0); ANION GAP 13.3 mmol/L (8-16); BILIRUBIN,TOTAL 0.6 mg/dL (0.2-1.2); CALCIUM 8.8 mg/dL (8.4-10.2); CREATININE, SERUM 0.7 mg/dL (0.57-1.11); TOTAL PROTEIN 7.6 g/dL (6.5-8.1)
[2024-05-22 07:34] LABS: POTASSIUM 3.3 mmol/L (3.5-5.1)
[2024-05-22] MEDS: SODIUM CHLORIDE 0.9% 250ML 250 ML ONE (10:24)
[2024-05-22 10:50] LABS: BASOPHILS % 0.2 % (0.0-1.0); LYMPHOCYTES # (AUTO) 0.9 (1.0-3.2); LYMPHOCYTES % 16.6 % (18.0-39.1); MEAN CORPUSCULAR HEMOGLOBIN 20.5 pg (28-32); MONOCYTES # (AUTO) 0.6 (0.2-0.8); MONOCYTES % 10.1 % (4.4-11.3); NEUTROPHILS # (AUTO) 3.9 (2.1-6.9); NEUTROPHILS % 72.5 % (38.7-80.0); PLATELET COUNT 101 x10e3/uL (140-360); RED BLOOD COUNT 4.39 x10e6/uL (3.6-5.1); RED CELL DISTRIBUTION WIDTH 27.6 % (11.7-14.4); WHITE BLOOD COUNT 5.43 x10e3/uL (4.8-10.8)
[2024-05-22 10:54] LABS: MEAN CORPUSCULAR VOLUME 70.6 fL (81-99)
[2024-05-22] MEDS ORDERED: IRON SUCROSE 5 ML IV ONE (11:24)
[2024-05-23] VITALS (10 sets, daily range): BP systolic 120–175; BP diastolic 51–60; PULSE 67–80; RESP 18–20; TEMP 98–98.8; O2SAT 92–100
[2024-05-23 07:00] LABS: BASOPHILS % 0.7 % (0.0-1.0); EOSINOPHILS # (AUTO) 0.2 (0.0-0.4); EOSINOPHILS % 3.5 % (0.0-6.0); HEMATOCRIT 29.5 % (34.2-44.1); HEMOGLOBIN 8.7 g/dL (12.0-16.0); LYMPHOCYTES # (AUTO) 1.7 (1.0-3.2); LYMPHOCYTES % 30.1 % (18.0-39.1); MEAN CORPUSCULAR HEMOGLOBIN 21.1 pg (28-32); MEAN CORPUSCULAR HGB CONC 29.5 g/dL (31-35); MEAN CORPUSCULAR VOLUME 71.6 fL (81-99); MONOCYTES # (AUTO) 0.6 (0.2-0.8); MONOCYTES % 9.5 % (4.4-11.3); NEUTROPHILS # (AUTO) 3.2 (2.1-6.9); NEUTROPHILS % 55.7 % (38.7-80.0); PLATELET COUNT 93 x10e3/uL (140-360); RED BLOOD COUNT 4.12 x10e6/uL (3.6-5.1); RED CELL DISTRIBUTION WIDTH 28.7 % (11.7-14.4); WHITE BLOOD COUNT 5.79 x10e3/uL (4.8-10.8)
[2024-05-23 07:25] LABS: ANION GAP 12.6 mmol/L (8-16); CALCIUM 8.2 mg/dL (8.4-10.2); CREATININE, SERUM 0.62 mg/dL (0.57-1.11); POTASSIUM 3.6 mmol/L (3.5-5.1)
[2024-05-24] VITALS (10 sets, daily range): BP systolic 141–177; BP diastolic 44–60; PULSE 72–84; RESP 17–20; TEMP 98–98.7; O2SAT 93–99
[2024-05-24] MEDS: HYDRALAZINE HCL 20 MG/ML VIAL IV PRN (01:03)
[2024-05-24 08:12] LABS: ENDOMYSIAL ANTIBODIES, IGA Negative (Negative)
[2024-05-24 08:27] LABS: IMMUNOGLOBULIN A 1067 mg/dL (64-422); TISSUE TRANSGLUTAMINASE IGA AB <2 U/mL (0-3)
[2024-05-24] MEDS: IRON SUCROSE 300 MG in SODIUM CHLORIDE 0.9% 100 ML IV SCH (22:02)
[2024-05-25 00:40] VITALS: BP 167/54; PULSE 85; RESP 20; TEMP 98.1; O2SAT 95
[2024-05-25 04:00] VITALS: BP 162/57; PULSE 80; RESP 20; TEMP 98.6; O2SAT 96
[2024-05-25 06:12] LABS: HEPATITIS C ANTIBODY Non Reactive
[2024-05-25 06:13] LABS: HEPATITIS A ANTIBODY IGM (P) Negative; HEPATITIS B CORE IGM (P) Negative; HEPATITIS B SURFACE AG (P) Negative
[2024-05-25 07:26] LABS: BASOPHILS % 0.6 % (0.0-1.0); EOSINOPHILS # (AUTO) 0.2 (0.0-0.4); EOSINOPHILS % 3.3 % (0.0-6.0); HEMATOCRIT 29.8 % (34.2-44.1); HEMOGLOBIN 8.8 g/dL (12.0-16.0); LYMPHOCYTES # (AUTO) 1.6 (1.0-3.2); LYMPHOCYTES % 34.1 % (18.0-39.1); MEAN CORPUSCULAR HEMOGLOBIN 21.1 pg (28-32); MEAN CORPUSCULAR HGB CONC 29.5 g/dL (31-35); MEAN CORPUSCULAR VOLUME 71.5 fL (81-99); MONOCYTES # (AUTO) 0.5 (0.2-0.8); MONOCYTES % 9.8 % (4.4-11.3); NEUTROPHILS # (AUTO) 2.5 (2.1-6.9); NEUTROPHILS % 51.8 % (38.7-80.0); PLATELET COUNT 80 x10e3/uL (140-360); RED BLOOD COUNT 4.17 x10e6/uL (3.6-5.1); RED CELL DISTRIBUTION WIDTH 32.2 % (11.7-14.4); WHITE BLOOD COUNT 4.81 x10e3/uL (4.8-10.8)
[2024-05-25 07:48] LABS: ANION GAP 11.6 mmol/L (8-16); CALCIUM 8.4 mg/dL (8.4-10.2); CREATININE, SERUM 0.59 mg/dL (0.57-1.11); POTASSIUM 3.6 mmol/L (3.5-5.1)
[2024-05-25 08:25] VITALS: BP 162/57; PULSE 80; RESP 20; TEMP 98.6; O2SAT 96
[2024-05-25 08:48] VITALS: BP 148/53; PULSE 72; RESP 18; TEMP 98.4; O2SAT 95
[2024-05-25 10:55] VITALS: BP 148/53
[2024-05-25] MEDS: NIFEDIPINE CR 30 MG TAB PO ONE (10:55)
[2024-05-25 10:57] LABS: LYMPHOCYTES % (MANUAL) 24 % (19-48); MONOCYTES % (MANUAL) 5 % (3.4-9.0); NEUTROPHILS % (MANUAL) 63 % (40-74); PLATELET ESTIMATE MODERATELY DECREASED; PLATELET MORPHOLOGY COMMENT NORMAL; RBC MORPHOLOGY COMMENT NORMAL; REACTIVE LYMPHOCYTES 8
[2024-05-25 11:33] VITALS: PULSE 85; RESP 18; O2SAT 94
== END 2024-05-25 12:05 | disposition home or self-care (01) | DRG 811 ==
LOC: ER 16:52 → ERHOLD 20:50 → MED/SURG3 22:00
PROVIDERS: ADMIT Internal Medicine; ATTEND Internal Medicine
PROC: 30233N1 Transfusion of Nonautologous Red Blood Cells into Peripheral Vein, Percutaneous Approach (ICD-10-PCS; principal; 2024-05-20)
PROC: 30233N1 Transfusion of Nonautologous Red Blood Cells into Peripheral Vein, Percutaneous Approach (ICD-10-PCS; 2024-05-21)
DX: D50.9 Iron deficiency anemia, unspecified (principal); J18.9 Pneumonia, unspecified organism; K65.4 Sclerosing mesenteritis; N39.0 Urinary tract infection, site not specified; D61.818 Other pancytopenia; R18.8 Other ascites; I85.00 Esophageal varices without bleeding; E87.6 Hypokalemia; I10 Essential (primary) hypertension; E78.5 Hyperlipidemia, unspecified; K44.9 Diaphragmatic hernia without obstruction or gangrene; D69.6 Thrombocytopenia, unspecified; K74.60 Unspecified cirrhosis of liver; R53.81 Other malaise; I70.8 Atherosclerosis of other arteries; T80.92XA Unspecified transfusion reaction, initial encounter; Y84.8 Other medical procedures as the cause of abnormal reaction of the patient, or of later complication, without mention of misadventure at the time of the procedure; Y92.230 Patient room in hospital as the place of occurrence of the external cause; Z11.52 Encounter for screening for COVID-19; Z87.19 Personal history of other diseases of the digestive system
CPT/HCPCS: 36415; 71260; 74177; 80048; 80053; 80076; 81001; 82270; 82550; 82607; 82746; 82784; 82948; 83010; 83516; 83540; 83605; 83615; 83880; 83970; 84443; 84466; 84484; 85025; 85045; 85379; 85384; 85610; 85730; 86078; 86256; 86850; 86880; 86900; 86920; 87040; 93005; 94799; 99284; J0360; J0696; J1100; J1200; J1756; J1940; J2470; J7050; P9016; Q9967